=== PATIENT | female | born 1965 | race Caucasian/White ===

== ENCOUNTER → 2017-06-09 18:28 | Outpatient (CLI) | payer OTHER, SELFPAY | PROVIDERS: Family Provider Family Medicine; Visit Provider Physician Assistant | DX: S81.812A Laceration without foreign body, left lower leg, initial encounter (principal); X58.XXXA Exposure to other specified factors, initial encounter | CPT/HCPCS: 87070; 87075; 87077; 87205 ==

== ENCOUNTER 2017-07-14 15:00 | Outpatient (RCR) | payer OTHER, SELFPAY ==
[2017-06-16 13:33] VITALS: BP 122/75; PULSE 100; RESP 16; TEMP 36.9; BMI 27.2
--- NOTE | 2017-06-16 15:24 | WC ---
Addendum entered by George Jessica 06/16/17 15:41: Multiphasic pulses throughout study. Lower legs and feet warm to touch. No edema, erythema present Original Note: KD SCREEN RIGHT BRACHIAL 121 mmHg LEFT BRACHIAL 100 mmHg POST. TIB. 130 mmHg POST. TIB. 130 mmHg DORS. PED. 118 mmHg DORS. PED. 118 mmHg 130 = 1.07 130 = 1.07 121 121 KD: 1.07 KD: 1.07
[2017-06-16 18:11] LABS: Absolute Lymphocyte Count 3.88 X10^3/ul (0.83-4.51); Absolute Neutrophil Count 5.1 X10^3/uL (2.0-7.7); Basophil# 0.06 X10^3/uL; Basophil% 0.6 % (0-1); Eosinophil# 0.17 X10^3/uL; Eosinophils% 1.7 % (0-5); Hematocrit 42.8 % (37-47); Hemoglobin 14.1 g/dl (12.0-15.0); Lymphocyte # 3.88 X10^3/ul (4.0); Lymphocyte % 39.2 % (19-41); Mean Corp Hgb Conc 32.9 g/gl (32-36); Mean Corpuscular Hgb 31.7 pg (27.0-32.0); Mean Corpuscular Volume 96.2 fL (81-99); Mean Platelet Vol. 10.5 fl (6.2-12.0); Monocyte# 0.63 X10^3/uL; Monocyte% 6.4 % (0-10); Neutrophil # 5.13 X10^3/uL (2.7-7.7); Neutrophil % 51.9 % (47-70); Platelet Count 348 K/mm3 (150-450); RBC Distribution Width CV 13.1 % (11.6-14.6); RBC Distribution Width SD 45.9 fl (35.1-43.9); Red Blood Count 4.45 M/mm3 (4.2-5.4); White Blood Count 9.9 K/mm3 (4.4-11.0)
[2017-06-16 18:14] LABS: POSITIVE COUNT NO; POSITIVE DIFFERENTIAL NO; POSITIVE MORPHOLOGY NO
[2017-06-16 18:25] LABS: Erythrocyte Sedimentation Rate 7 mm/hr (0-30)
[2017-06-16 18:54] LABS: ALB/GLOB Ratio 1.1 RATIO (0.9-2.4); AST(SGOT) 18 U/L (15-37); Alanine Aminotransfer ALT/SGPT 23 U/L (13-56); Albumin, Serum 3.9 g/dL (3.2-5.0); Alkaline Phosphatase 67 U/L (45-117); Anion Gap 9 (5-15); BUN 15 mg/dL (7-18); BUN/Creat Ratio 22.9 RATIO (10-20); CRP < 2.90 mg/L (0.0-3.0); Calcium,Total 8.8 mg/dL (8.5-10.1); Chloride 102 mmol/L (98-107); Creatinine, Serum 0.65 mg/dL (0.55-1.02); EST Glomerular Filtration Rate 101 mL/min (>60); Est Glom Filt Rate - Afr Amer 122 mL/min (>60); Estimated Creatinine Clearance 99.57 ml/min; Globulin 3.4 g/dL (2.2-4.2); Glucose 66 mg/dL (74-106); Potassium 3.8 mmol/L (3.5-5.1); Protein, Total 7.3 g/dL (6.4-8.2); Sodium Level 137 mmol/L (136-145)
[2017-06-16 19:15] LABS: Hemoglobin A1c 5.6 % (4.2-6.3)
--- NOTE | 2017-06-16 19:37 | PCM.WC.HP ---
(1) Nonhealing ulcer of left lower extremity with fat layer exposed Status: Acute Current Visit: Yes Code(s): L97.922 - Non-pressure chronic ulcer of unspecified part of left lower leg with fat layer exposed (2) Cellulitis of left lower extremity Status: Acute Current Visit: Yes Code(s): L03.116 - Cellulitis of left lower limb (3) Tobacco abuse Status: Acute Current Visit: Yes Code(s): Z72.0 - Tobacco use (4) Edema, lower extremity Status: Acute Current Visit: Yes Code(s): R60.0 - Localized edema (5) Decreased pedal pulses Status: Acute Current Visit: Yes Code(s): R09.89 - Other specified symptoms and signs involving the circulatory and respiratory systems History of Present Illness Date of Service: 06/16/17 Chief Complaint: Wound and infection left lower posterior calf, s/p work injury History of Wound: This is a 51-year-old white female who presents to the wound healing center today for a follow-up of a wound/ulcer on her left posterior calf. This began on 05/10/2017 when she was at work and cut her leg on an unknown object when she was moving a table. She was seen at [place] emergency department and her laceration was sutured. At that time her tetanus was up-to-date. The patient has been following up with corporate care who had referred her to the wound center because of nonhealing status status post suture removal and surrounding cellulitis. The patient was previously treated with Keflex and is now currently on doxycycline. A wound culture was done which demonstrated rare organisms. The patient denies any purulent drainage, foul-smelling discharge, or pain at the site. Her wound care has included keeping the wound covered while at work with gauze. Unfortunately, the patient does smoke as well and has a [id number] smoking history. The patient otherwise denies any fever, chills, nausea, vomiting, shortness of breath, chest pain or pressure, palpitations, orthopnea, lower extremity edema, syncope or presyncopal episodes. Past Medical History Surgical History: noncontributory Allergies/Adverse Reactions: Allergies No Known Allergies Allergy (Verified 06/16/17 13:59) Home Medications: Ambulatory Orders Medication Instructions Recorded Sertraline HCl [Zoloft] 50 mg PO DAILY 05/10/17 doxycycline hyclate 100 mg capsule 100 mg PO BID #20 cap 06/09/17 Ibuprofen 100 mg PO BID 06/16/17 Lives: Spouse/ Significant Other Smoking Status: Current every day smoker Drugs: None Review of Systems Constitutional: Denies: Chills, Fever, Weight Change Eyes: Denies: Pain, Vision Change HEENT: Denies: Difficulty Hearing, Difficulty Swallowing, Sinus Congestion Cardiovascular: Denies: Chest Pain, Palpitations Respiratory: Denies: Cough, Shortness of Breath Gastrointestinal: Denies: Diarrhea, Nausea, Vomiting Genitourinary: Denies: Dysuria, Hematuria Skin: Reports: Wounds - See HPI Endocrine: Denies: Heat/ Cold Intolerance, Polydipsia, Polyuria Hematologic/ Lymphatic: Denies: Easy Bruising, Easy Bleeding - Physical Exam Vital Signs Temp Pulse Resp BP 98.4 F 100 16 122/75 H 06/16/17 13:33 06/16/17 13:33 06/16/17 13:33 06/16/17 13:33 General: Alert, Oriented x3, Cooperative, No apparent distress HEENT: PERRLA, EOMI Oral: Moist Mucosa Neck: Supple, No JVD, Negative Carotid Bruits Lungs: Clear to auscultation, Normal air movement Cardiovascular: Regular rate, Regular Rhythm Abdomen: Bowel Sounds Present, Soft, Non Tender Extremities: No clubbing, No cyanosis, Capillary Refill Less than 3 Seconds, Diminished Peripheral Pulses - 1+ palpable pulses bilaterally, Edema - Generalized bilateral lower extremity edema, - - Varicose veins present bilateral lower extremities Skin: Ulcer/ Wound - Nonhealing V shaped ulcer present left posterior calf, covered in small amount of eschar and large amount of slough, small amount of surrounding erythema approximately 2 cm surrounding the wound bed present, no purulent discharge or odor, no tenderness on exam Wound Measurements and Assessment WC - Nurse 1 - General Ulcer Measurement Start: 06/16/17 13:32 Freq: Status: Active Protocol: Activity Type Activity Date Activity User E-Sign Co-Sign Detail Recorded Client Recorded Date Recorded By Document 06/16/17 13:33 [facility] [id number] 06/16/17 13:49 [facility] 06/16/17 13:33 Wound Center Nurse 1 [Ulcer Assessment] #1- LT CALF (POST TRAUMA ON 05/10/17) -Combined with other wound No -Current Size (cm) - Length 1.8 -Current Size (cm) - Width 2.2 -Current Size (cm) - Depth 0.2 -Total Square Cm 3.96 -Date of Last Picture (Recall this 06/16/17 field) -Photo Taken Yes -Epithelialization None Present -Tunneling No -Undermining/Tunneling No -Exudate Amt None Present (0 %) -Wound Margin Distinct, Outline Attached -Granulation Amt Small (1-33%) -Granulation Quality Red -Slough/Fibrin Yes -Necrosis Amt Medium (34-66%) -Necrotic Tissue Type Adherent Slough -Structure Exposed N/A -Texture (Srea-wound Skin Appearance) Scarring -Moisture (Sera-wound Skin Appearance Dry/Scaly ) -Color (Sera-wound Skin Appearance) Erythema -Temperature (Sera-wound Skin No Abnormality Appearance) (Pt Warm) -Tenderness on Palpation (Sera-wound No Skin Appearance) -Ulcer Cleansing Rinsed/ Irrigated with Saline -Foul Odor after Cleansing No -Anesthetic Used 4% Lidocaine Solution [Edema Assessment] -Lower Limb Edema Present No -Right Calf (cm) 37.9 -Right Ankle (cm) 22.1 -Left Calf (cm) 38.5 -Left Ankle (cm) 22.7 WC - Nurse 2 - General Ulcer CM Notes Start: 06/16/17 13:32 Freq: Status: Active Protocol: Activity Type Activity Date Activity User E-Sign Co-Sign Detail Recorded Client Recorded Date Recorded By Document 06/16/17 14:45 DV [id number] 06/16/17 14:59 DV 06/16/17 14:45 Wound Center Nurse 2 [Procedure/Treatment] #1- LT CALF (POST TRAUMA ON 05/10/17) -Time 14:47 -Correct Patient Yes -Correct Side, Site, Position Yes -Correct Procedure Yes -Procedure Performed Yes -Type of Procedure Debridement -Clinical Debridement Subcutaneous -Post Debridement Size (cm) - Length 1.6 -Post Debridement Size (cm) - Width 2.2 -Post Debridement Size (cm) - Depth 0.4 -Total Square Cm 3.52 -Wound/Ulcer Outcome Not Healed -Ulcer Cleansing Rinsed/ Irrigated with Saline -Foul Odor after Cleansing No -Bioengineered Tissue No -Bleeding Controlled with Pressure -Treatment Response Procedure Tolerated Well [See Physician Procedure note for Specifics] Pain Scale: 0-10 Numeric [Pain] -Is Patient Pain Free? Yes Musculoskeletal: No Tenderness to Palpation of Joints or Extremities Neurological: Cranial nerves II-XII grossly intact Psych/Mental Status: Normal Affect, Appropriate, Alert and oriented to time, place, person, mood and affect Debridement Note Post-Debridement Measurements/Treatment WC - Nurse 2 - General Ulcer CM Notes Start: 06/16/17 13:32 Freq: Status: Active Protocol: Activity Type Activity Date Activity User E-Sign Co-Sign Detail Recorded Client Recorded Date Recorded By Document 06/16/17 14:45 DV [id number] 06/16/17 14:59 DV 06/16/17 14:45 Wound Center Nurse 2 #1- LT CALF (POST TRAUMA ON 05/10/17) -Time 14:47 -Correct Patient Yes -Correct Side, Site, Position Yes -Correct Procedure Yes -Procedure Performed Yes -Type of Procedure Debridement -Clinical Debridement Subcutaneous -Post Debridement Size (cm) - Length 1.6 -Post Debridement Size (cm) - Width 2.2 -Post Debridement Size (cm) - Depth 0.4 -Total Square Cm 3.52 -Wound/Ulcer Outcome Not Healed -Ulcer Cleansing Rinsed/ Irrigated with Saline -Foul Odor after Cleansing No -Bioengineered Tissue No -Bleeding Controlled with Pressure -Treatment Response Procedure Tolerated Well Pain Scale: 0-10 Numeric Is Patient Pain Free? Yes Wound debrided: Nonhealing ulcer status post traumatic injury left posterior calf Laterality: Left Type of Debridement: Excisional debridement Anesthesia Used: 5% Lidocaine Gel Depth: Down to and including healthy tissue, in the subcutaneous layer Percentage of wound debrided: 100 Instrument Used: 5mm curette Tissue Removed: Slough and devitalized tissue Severity: Fat Layer Exposed Amount of bleeding with debridement: Mild Bleeding Controlled with: Pressure Patient tolerated procedure well Assessment/Plan Active Problems (Last Reviewed 06/09/17 @ 16:00 by Ashtyn Glaser) Nonhealing ulcer of left lower extremity with fat layer exposed (Acute) Tobacco abuse (Acute) Edema, lower extremity (Acute) Decreased pedal pulses (Acute) Cellulitis of left lower extremity (Acute) Assessment: Nonhealing ulcer left posterior calf status post traumatic injury which occurred at work Plan: The patient was seen and examined at the wound center today and was updated on the plan of care. A subcutaneous debridement was performed today. The patient tolerated the procedure well. The patients wound care will consist of: Daily Tessa, hydrogel, and Adaptic and gauze with double Tubigrip for compression. Wound cultures were collected. Patient to continue with her entire course of doxycycline, her cellulitis does appear to be improving. Baseline bloodwork ordered. Vascular studies ordered. ABIs were done today in the office which demonstrated 1.07 bilaterally, therefore double Tubigrip compression ordered. Patient educated on the detrimental effects of her smoking on wound healing and instructed to cut back and/or entirely quit smoking, deferred smoking cessation pharmacologic management to her PCP. Patient educated on the importance of diet on wound healing and instructed to increase protein and vitamin C intake. Patient verbalized understanding. Patient will follow up at wound healing center in one week or sooner if needed. This note was generated with [employer] dictation software. It may contain incorrect words, spelling, and punctuation that were not noted in checking the note before signing. Code Visit Office Visits / Consults: 50498 OV L4 Est 111xxx-113xx: [id number] Lissette subq tissue 20 sq cm/<
--- NOTE | 2017-06-17 08:47 | HP.PCM_ITS ---
(1) Nonhealing ulcer of left lower extremity with fat layer exposed Status: Acute Current Visit: Yes Code(s): L97.922 - Non-pressure chronic ulcer of unspecified part of left lower leg with fat layer exposed (2) Cellulitis of left lower extremity Status: Acute Current Visit: Yes Code(s): L03.116 - Cellulitis of left lower limb (3) Tobacco abuse Status: Acute Current Visit: Yes Code(s): Z72.0 - Tobacco use (4) Edema, lower extremity Status: Acute Current Visit: Yes Code(s): R60.0 - Localized edema (5) Decreased pedal pulses Status: Acute Current Visit: Yes Code(s): R09.89 - Other specified symptoms and signs involving the circulatory and respiratory systems History of Present Illness Date of Service: 06/16/17 Chief Complaint: Wound and infection left lower posterior calf, s/p work injury History of Wound: This is a 51-year-old white female who presents to the wound healing center today for a follow-up of a wound/ulcer on her left posterior calf. This began on 05/10/2017 when she was at work and cut her leg on an unknown object when she was moving a table. She was seen at [place] emergency department and her laceration was sutured. At that time her tetanus was up-to-date. The patient has been following up with corporate care who had referred her to the wound center because of nonhealing status status post suture removal and surrounding cellulitis. The patient was previously treated with Keflex and is now currently on doxycycline. A wound culture was done which demonstrated rare organisms. The patient denies any purulent drainage, foul-smelling discharge, or pain at the site. Her wound care has included keeping the wound covered while at work with gauze. Unfortunately, the patient does smoke as well and has a [id number] smoking history. The patient otherwise denies any fever, chills, nausea, vomiting, shortness of breath, chest pain or pressure, palpitations, orthopnea, lower extremity edema, syncope or presyncopal episodes. Past Medical History Surgical History: noncontributory Allergies/Adverse Reactions: Allergies No Known Allergies Allergy (Verified 06/16/17 13:59) Home Medications: Ambulatory Orders Medication Instructions Recorded Sertraline HCl [Zoloft] 50 mg PO DAILY 05/10/17 doxycycline hyclate 100 mg capsule 100 mg PO BID #20 cap 06/09/17 Ibuprofen 100 mg PO BID 06/16/17 Lives: Spouse/ Significant Other Smoking Status: Current every day smoker Drugs: None Review of Systems Constitutional: Denies: Chills, Fever, Weight Change Eyes: Denies: Pain, Vision Change HEENT: Denies: Difficulty Hearing, Difficulty Swallowing, Sinus Congestion Cardiovascular: Denies: Chest Pain, Palpitations Respiratory: Denies: Cough, Shortness of Breath Gastrointestinal: Denies: Diarrhea, Nausea, Vomiting Genitourinary: Denies: Dysuria, Hematuria Skin: Reports: Wounds - See HPI Endocrine: Denies: Heat/ Cold Intolerance, Polydipsia, Polyuria Hematologic/ Lymphatic: Denies: Easy Bruising, Easy Bleeding - Physical Exam Vital Signs Temp Pulse Resp BP 98.4 F 100 16 122/75 H 06/16/17 13:33 06/16/17 13:33 06/16/17 13:33 06/16/17 13:33 General: Alert, Oriented x3, Cooperative, No apparent distress HEENT: PERRLA, EOMI Oral: Moist Mucosa Neck: Supple, No JVD, Negative Carotid Bruits Lungs: Clear to auscultation, Normal air movement Cardiovascular: Regular rate, Regular Rhythm Abdomen: Bowel Sounds Present, Soft, Non Tender Extremities: No clubbing, No cyanosis, Capillary Refill Less than 3 Seconds, Diminished Peripheral Pulses - 1+ palpable pulses bilaterally, Edema - Generalized bilateral lower extremity edema, - - Varicose veins present bilateral lower extremities Skin: Ulcer/ Wound - Nonhealing V shaped ulcer present left posterior calf, covered in small amount of eschar and large amount of slough, small amount of surrounding erythema approximately 2 cm surrounding the wound bed present, no purulent discharge or odor, no tenderness on exam Wound Measurements and Assessment WC - Nurse 1 - General Ulcer Measurement Start: 06/16/17 13:32 Freq: Status: Active Protocol: Activity Type Activity Date Activity User E-Sign Co-Sign Detail Recorded Client Recorded Date Recorded By Document 06/16/17 13:33 [facility] [id number] 06/16/17 13:49 [facility] 06/16/17 13:33 Wound Center Nurse 1 [Ulcer Assessment] #1- LT CALF (POST TRAUMA ON 05/10/17) -Combined with other wound No -Current Size (cm) - Length 1.8 -Current Size (cm) - Width 2.2 -Current Size (cm) - Depth 0.2 -Total Square Cm 3.96 -Date of Last Picture (Recall this 06/16/17 field) -Photo Taken Yes -Epithelialization None Present -Tunneling No -Undermining/Tunneling No -Exudate Amt None Present (0 %) -Wound Margin Distinct, Outline Attached -Granulation Amt Small (1-33%) -Granulation Quality Red -Slough/Fibrin Yes -Necrosis Amt Medium (34-66%) -Necrotic Tissue Type Adherent Slough -Structure Exposed N/A -Texture (Sera-wound Skin Appearance) Scarring -Moisture (Sera-wound Skin Appearance Dry/Scaly ) -Color (Sera-wound Skin Appearance) Erythema -Temperature (Sera-wound Skin No Abnormality Appearance) (Pt Warm) -Tenderness on Palpation (Sera-wound No Skin Appearance) -Ulcer Cleansing Rinsed/ Irrigated with Saline -Foul Odor after Cleansing No -Anesthetic Used 4% Lidocaine Solution [Edema Assessment] -Lower Limb Edema Present No -Right Calf (cm) 37.9 -Right Ankle (cm) 22.1 -Left Calf (cm) 38.5 -Left Ankle (cm) 22.7 WC - Nurse 2 - General Ulcer CM Notes Start: 06/16/17 13:32 Freq: Status: Active Protocol: Activity Type Activity Date Activity User E-Sign Co-Sign Detail Recorded Client Recorded Date Recorded By Document 06/16/17 14:45 DV [id number] 06/16/17 14:59 DV 06/16/17 14:45 Wound Center Nurse 2 [Procedure/Treatment] #1- LT CALF (POST TRAUMA ON 05/10/17) -Time 14:47 -Correct Patient Yes -Correct Side, Site, Position Yes -Correct Procedure Yes -Procedure Performed Yes -Type of Procedure Debridement -Clinical Debridement Subcutaneous -Post Debridement Size (cm) - Length 1.6 -Post Debridement Size (cm) - Width 2.2 -Post Debridement Size (cm) - Depth 0.4 -Total Square Cm 3.52 -Wound/Ulcer Outcome Not Healed -Ulcer Cleansing Rinsed/ Irrigated with Saline -Foul Odor after Cleansing No -Bioengineered Tissue No -Bleeding Controlled with Pressure -Treatment Response Procedure Tolerated Well [See Physician Procedure note for Specifics] Pain Scale: 0-10 Numeric [Pain] -Is Patient Pain Free? Yes Musculoskeletal: No Tenderness to Palpation of Joints or Extremities Neurological: Cranial nerves II-XII grossly intact Psych/Mental Status: Normal Affect, Appropriate, Alert and oriented to time, place, person, mood and affect Debridement Note Post-Debridement Measurements/Treatment WC - Nurse 2 - General Ulcer CM Notes Start: 06/16/17 13:32 Freq: Status: Active Protocol: Activity Type Activity Date Activity User E-Sign Co-Sign Detail Recorded Client Recorded Date Recorded By Document 06/16/17 14:45 DV [id number] 06/16/17 14:59 DV 06/16/17 14:45 Wound Center Nurse 2 #1- LT CALF (POST TRAUMA ON 05/10/17) -Time 14:47 -Correct Patient Yes -Correct Side, Site, Position Yes -Correct Procedure Yes -Procedure Performed Yes -Type of Procedure Debridement -Clinical Debridement Subcutaneous -Post Debridement Size (cm) - Length 1.6 -Post Debridement Size (cm) - Width 2.2 -Post Debridement Size (cm) - Depth 0.4 -Total Square Cm 3.52 -Wound/Ulcer Outcome Not Healed -Ulcer Cleansing Rinsed/ Irrigated with Saline -Foul Odor after Cleansing No -Bioengineered Tissue No -Bleeding Controlled with Pressure -Treatment Response Procedure Tolerated Well Pain Scale: 0-10 Numeric Is Patient Pain Free? Yes Wound debrided: Nonhealing ulcer status post traumatic injury left posterior calf Laterality: Left Type of Debridement: Excisional debridement Anesthesia Used: 5% Lidocaine Gel Depth: Down to and including healthy tissue, in the subcutaneous layer Percentage of wound debrided: 100 Instrument Used: 5mm curette Tissue Removed: Slough and devitalized tissue Severity: Fat Layer Exposed Amount of bleeding with debridement: Mild Bleeding Controlled with: Pressure Patient tolerated procedure well Assessment/Plan Active Problems (Last Reviewed 06/09/17 @ 16:00 by Ashtyn Glaser) Nonhealing ulcer of left lower extremity with fat layer exposed (Acute) Tobacco abuse (Acute) Edema, lower extremity (Acute) Decreased pedal pulses (Acute) Cellulitis of left lower extremity (Acute) Assessment: Nonhealing ulcer left posterior calf status post traumatic injury which occurred at work Plan: The patient was seen and examined at the wound center today and was updated on the plan of care. A subcutaneous debridement was performed today. The patient tolerated the procedure well. The patients wound care will consist of: Daily Tessa, hydrogel, and Adaptic and gauze with double Tubigrip for compression. Wound cultures were collected. Patient to continue with her entire course of doxycycline, her cellulitis does appear to be improving. Baseline bloodwork ordered. Vascular studies ordered. ABIs were done today in the office which demonstrated 1.07 bilaterally, therefore double Tubigrip compression ordered. Patient educated on the detrimental effects of her smoking on wound healing and instructed to cut back and/or entirely quit smoking , deferred smoking cessation pharmacologic management to her PCP. Patient educated on the importance of diet on wound healing and instructed to increase protein and vitamin C intake. Patient verbalized understanding. Patient will follow up at wound healing center in one week or sooner if needed. This note was generated with [employer] dictation software. It may contain incorrect words, spelling, and punctuation that were not noted in checking the note before signing. Code Visit Office Visits / Consults: [id number] OV L4 Est 111xxx-113xx: [id number] Lissette subq tissue 20 sq cm/<
[2017-06-23 14:46] VITALS: BP 118/69; PULSE 101; RESP 18; TEMP 36
--- NOTE | 2017-06-23 16:48 | PCM.WC.PN ---
(1) Nonhealing ulcer of left lower extremity with fat layer exposed Status: Acute Current Visit: Yes Code(s): L97.922 - Non-pressure chronic ulcer of unspecified part of left lower leg with fat layer exposed (2) Cellulitis of left lower extremity Status: Acute Current Visit: Yes Code(s): L03.116 - Cellulitis of left lower limb (3) Tobacco abuse Status: Acute Current Visit: Yes Code(s): Z72.0 - Tobacco use (4) Edema, lower extremity Status: Acute Current Visit: Yes Code(s): R60.0 - Localized edema (5) Decreased pedal pulses Status: Acute Current Visit: Yes Code(s): R09.89 - Other specified symptoms and signs involving the circulatory and respiratory systems Type of Wound Date of Service: 06/23/17 Chief Complaint: Wound and infection left lower posterior calf, s/p work injury History of Wound: This is a 51-year-old white female who presents to the wound healing center today for a follow-up of a wound/ulcer on her left posterior calf. This began on 05/10/2017 when she was at work and cut her leg on an unknown object when she was moving a table. She was seen at [place] emergency department and her laceration was sutured. At that time her tetanus was up-to-date. The patient has been following up with corporate care who had referred her to the wound center because of nonhealing status status post suture removal and surrounding cellulitis. The patient was previously treated with Keflex and is now currently on doxycycline. A wound culture was done which demonstrated rare organisms. The patient denies any purulent drainage, foul-smelling discharge, or pain at the site. Her wound care has included keeping the wound covered while at work with gauze. Unfortunately, the patient does smoke as well and has a [id number] smoking history. The patient otherwise denies any fever, chills, nausea, vomiting, shortness of breath, chest pain or pressure, palpitations, orthopnea, lower extremity edema, syncope or presyncopal episodes. Progress of Wound: Wound is stable and improving - Physical Exam Vital Signs Temp Pulse Resp BP 96.8 F L 101 H 18 118/69 06/23/17 14:46 06/23/17 14:46 06/23/17 14:46 06/23/17 14:46 General: Alert, Oriented x3, Cooperative, No apparent distress HEENT: Atraumatic Oral: Moist Mucosa Cardiovascular: Regular rate Extremities: Diminished Peripheral Pulses, Edema - Generalized lower extremity edema Skin: Ulcer/ Wound - Nonhealing ulcer present left posterior calf, periwound bed no longer inflamed and no exudate or foul smell. No pain or tenderness Wound Measurements and Assessment WC - Nurse 1 - General Ulcer Measurement Start: 06/16/17 13:32 Freq: Status: Active Protocol: Activity Type Activity Date Activity User E-Sign Co-Sign Detail Recorded Client Recorded Date Recorded By Document 06/23/17 14:46 DL [id number] 06/23/17 14:58 DL 06/23/17 14:46 Wound Center Nurse 1 [Ulcer Assessment] #1- LT CALF (POST TRAUMA ON 05/10/17) -Current Size (cm) - Length 1.6 -Current Size (cm) - Width 2 -Current Size (cm) - Depth 0.2 -Total Square Cm 3.2 -Photo Taken No -Exudate Amt Small (1-33%) -Exudate Type Serosanguineous -Wound Margin Distinct, Outline Attached -Granulation Amt Medium (34-66%) -Granulation Quality [place] -Necrosis Amt Medium (34-66%) -Necrotic Tissue Type Adherent Slough -Structure Exposed N/A -Texture (Sera-wound Skin Appearance) Scarring -Moisture (Sera-wound Skin Appearance No Abnormality ) -Color (Sear-wound Skin Appearance) Erythema Rubor -Temperature (Sera-wound Skin No Abnormality Appearance) (Pt Warm) -Ulcer Cleansing Wound Cleanser -Foul Odor after Cleansing No -Anesthetic Used 4% Lidocaine Solution [Edema Assessment] -Left Calf (cm) 36.5 -Left Ankle (cm) 21.8 WC - Nurse 2 - General Ulcer CM Notes Start: 06/16/17 13:32 Freq: Status: Active Protocol: Activity Type Activity Date Activity User E-Sign Co-Sign Detail Recorded Client Recorded Date Recorded By Document 06/23/17 16:12 DV [id number] 06/23/17 16:14 DV 06/23/17 16:12 Wound Center Nurse 2 [Procedure/Treatment] #1- LT CALF (POST TRAUMA ON 05/10/17) -Time 16:12 -Correct Patient Yes -Correct Side, Site, Position Yes -Correct Procedure Yes -Procedure Performed Yes -Type of Procedure Debridement -Clinical Debridement Subcutaneous -Post Debridement Size (cm) - Length 1.3 -Post Debridement Size (cm) - Width 1.8 -Post Debridement Size (cm) - Depth 0.3 -Total Square Cm 2.34 -Wound/Ulcer Outcome Not Healed -Ulcer Cleansing Rinsed/ Irrigated with Saline -Foul Odor after Cleansing No -Bioengineered Tissue No -Bleeding Controlled with Pressure -Treatment Response Procedure Tolerated Well [See Physician Procedure note for Specifics] Pain Scale: 0-10 Numeric [Pain] -Is Patient Pain Free? Yes Neurological: Cranial nerves II-XII grossly intact Psych/Mental Status: Normal Affect, Alert and oriented to time, place, person, mood and affect Debridement Note Post-Debridement Measurements/Treatment WC - Nurse 2 - General Ulcer CM Notes Start: 06/16/17 13:32 Freq: Status: Active Protocol: Activity Type Activity Date Activity User E-Sign Co-Sign Detail Recorded Client Recorded Date Recorded By Document 06/16/17 14:45 DV [id number] 06/16/17 14:59 DV Document 06/23/17 16:12 DV [id number] 06/23/17 16:14 DV 06/16/17 06/23/17 14:45 16:12 Wound Center Nurse 2 #1- LT CALF (POST TRAUMA ON 05/10/17) -Time 14:47 16:12 -Correct Patient Yes Yes -Correct Side, Site, Position Yes Yes -Correct Procedure Yes Yes -Procedure Performed Yes Yes -Type of Procedure Debridement Debridement -Clinical Debridement Subcutaneous Subcutaneous -Post Debridement Size (cm) - Length 1.6 1.3 -Post Debridement Size (cm) - Width 2.2 1.8 -Post Debridement Size (cm) - Depth 0.4 0.3 -Total Square Cm 3.52 2.34 -Wound/Ulcer Outcome Not Healed Not Healed -Ulcer Cleansing Rinsed/ Rinsed/ Irrigated with Irrigated with Saline Saline -Foul Odor after Cleansing No No -Bioengineered Tissue No No -Bleeding Controlled with Pressure Pressure -Treatment Response Procedure Procedure Tolerated Well Tolerated Well Pain Scale: 0-10 Numeric Is Patient Pain Free? Yes Yes Wound debrided: Nonhealing ulcer left lower extremity posterior calf Laterality: Left Type of Debridement: Excisional debridement Anesthesia Used: 5% Lidocaine Gel Depth: in the subcutaneous layer Percentage of wound debrided: 100 Instrument Used: 5mm curette Tissue Removed: Slough and fibrous tissue and excess necrotic tissue Severity: Fat Layer Exposed Bleeding Controlled with: Pressure Patient tolerated procedure well Assessment/Plan Active Problems (Last Reviewed 06/09/17 @ 16:00 by Ashtyn Glaser) Nonhealing ulcer of left lower extremity with fat layer exposed (Acute) Tobacco abuse (Acute) Edema, lower extremity (Acute) Decreased pedal pulses (Acute) Cellulitis of left lower extremity (Acute) Assessment: Nonhealing ulcer left posterior calf status post traumatic injury which occurred at work gradually improving Plan: The patient was seen and examined at the wound center today and was updated on the plan of care. A subcutaneous debridement was performed today. The patient tolerated the procedure well. The patients wound care will consist of: Daily Tessa, hydrogel, and Adaptic and gauze with LUL hose compression stockings for compression. Wound cultures were collected. Patient did complete her entire course of doxycycline, her cellulitis does appear to be resolved. Baseline bloodwork reviewed with patient. Vascular studies reviewed and showed valvular incompetencies, therefore patient instructed to utilize her LUL hose compression stockings that she has at home. ABIs were done previously in the office which demonstrated 1.07 bilaterally. Patient educated on the detrimental effects of her smoking on wound healing and instructed to cut back and/or entirely quit smoking, deferred smoking cessation pharmacologic management to her PCP. Patient educated on the importance of diet on wound healing and instructed to increase protein and vitamin C intake. Patient verbalized understanding. Patient will follow up at wound healing center in one week or sooner if needed. This note was generated with [employer] dictation software. It may contain incorrect words, spelling, and punctuation that were not noted in checking the note before signing. Code Visit 111xxx-113xx: 77042 Lissette subq tissue 20 sq cm/<
--- NOTE | 2017-06-24 16:54 | PN.PCM_ITS ---
(1) Nonhealing ulcer of left lower extremity with fat layer exposed Status: Acute Current Visit: Yes Code(s): L97.922 - Non-pressure chronic ulcer of unspecified part of left lower leg with fat layer exposed (2) Cellulitis of left lower extremity Status: Acute Current Visit: Yes Code(s): L03.116 - Cellulitis of left lower limb (3) Tobacco abuse Status: Acute Current Visit: Yes Code(s): Z72.0 - Tobacco use (4) Edema, lower extremity Status: Acute Current Visit: Yes Code(s): R60.0 - Localized edema (5) Decreased pedal pulses Status: Acute Current Visit: Yes Code(s): R09.89 - Other specified symptoms and signs involving the circulatory and respiratory systems Type of Wound Date of Service: 06/23/17 Chief Complaint: Wound and infection left lower posterior calf, s/p work injury History of Wound: This is a 51-year-old white female who presents to the wound healing center today for a follow-up of a wound/ulcer on her left posterior calf. This began on 05/10/2017 when she was at work and cut her leg on an unknown object when she was moving a table. She was seen at [place] emergency department and her laceration was sutured. At that time her tetanus was up-to-date. The patient has been following up with corporate care who had referred her to the wound center because of nonhealing status status post suture removal and surrounding cellulitis. The patient was previously treated with Keflex and is now currently on doxycycline. A wound culture was done which demonstrated rare organisms. The patient denies any purulent drainage, foul-smelling discharge, or pain at the site. Her wound care has included keeping the wound covered while at work with gauze. Unfortunately, the patient does smoke as well and has a [id number] smoking history. The patient otherwise denies any fever, chills, nausea, vomiting, shortness of breath, chest pain or pressure, palpitations, orthopnea, lower extremity edema, syncope or presyncopal episodes. Progress of Wound: Wound is stable and improving - Physical Exam Vital Signs Temp Pulse Resp BP 96.8 F L 101 H 18 118/69 06/23/17 14:46 06/23/17 14:46 06/23/17 14:46 06/23/17 14:46 General: Alert, Oriented x3, Cooperative, No apparent distress HEENT: Atraumatic Oral: Moist Mucosa Cardiovascular: Regular rate Extremities: Diminished Peripheral Pulses, Edema - Generalized lower extremity edema Skin: Ulcer/ Wound - Nonhealing ulcer present left posterior calf, periwound bed no longer inflamed and no exudate or foul smell. No pain or tenderness Wound Measurements and Assessment WC - Nurse 1 - General Ulcer Measurement Start: 06/16/17 13:32 Freq: Status: Active Protocol: Activity Type Activity Date Activity User E-Sign Co-Sign Detail Recorded Client Recorded Date Recorded By Document 06/23/17 14:46 DL [id number] 06/23/17 14:58 DL 06/23/17 14:46 Wound Center Nurse 1 [Ulcer Assessment] #1- LT CALF (POST TRAUMA ON 05/10/17) -Current Size (cm) - Length 1.6 -Current Size (cm) - Width 2 -Current Size (cm) - Depth 0.2 -Total Square Cm 3.2 -Photo Taken No -Exudate Amt Small (1-33%) -Exudate Type Serosanguineous -Wound Margin Distinct, Outline Attached -Granulation Amt Medium (34-66%) -Granulation Quality [place] -Necrosis Amt Medium (34-66%) -Necrotic Tissue Type Adherent Slough -Structure Exposed N/A -Texture (Sera-wound Skin Appearance) Scarring -Moisture (Sera-wound Skin Appearance No Abnormality ) -Color (Sera-wound Skin Appearance) Erythema Rubor -Temperature (Sera-wound Skin No Abnormality Appearance) (Pt Warm) -Ulcer Cleansing Wound Cleanser -Foul Odor after Cleansing No -Anesthetic Used 4% Lidocaine Solution [Edema Assessment] -Left Calf (cm) 36.5 -Left Ankle (cm) 21.8 WC - Nurse 2 - General Ulcer CM Notes Start: 06/16/17 13:32 Freq: Status: Active Protocol: Activity Type Activity Date Activity User E-Sign Co-Sign Detail Recorded Client Recorded Date Recorded By Document 06/23/17 16:12 DV [id number] 06/23/17 16:14 DV 06/23/17 16:12 Wound Center Nurse 2 [Procedure/Treatment] #1- LT CALF (POST TRAUMA ON 05/10/17) -Time 16:12 -Correct Patient Yes -Correct Side, Site, Position Yes -Correct Procedure Yes -Procedure Performed Yes -Type of Procedure Debridement -Clinical Debridement Subcutaneous -Post Debridement Size (cm) - Length 1.3 -Post Debridement Size (cm) - Width 1.8 -Post Debridement Size (cm) - Depth 0.3 -Total Square Cm 2.34 -Wound/Ulcer Outcome Not Healed -Ulcer Cleansing Rinsed/ Irrigated with Saline -Foul Odor after Cleansing No -Bioengineered Tissue No -Bleeding Controlled with Pressure -Treatment Response Procedure Tolerated Well [See Physician Procedure note for Specifics] Pain Scale: 0-10 Numeric [Pain] -Is Patient Pain Free? Yes Neurological: Cranial nerves II-XII grossly intact Psych/Mental Status: Normal Affect, Alert and oriented to time, place, person, mood and affect Debridement Note Post-Debridement Measurements/Treatment WC - Nurse 2 - General Ulcer CM Notes Start: 06/16/17 13:32 Freq: Status: Active Protocol: Activity Type Activity Date Activity User E-Sign Co-Sign Detail Recorded Client Recorded Date Recorded By Document 06/16/17 14:45 DV [id number] 06/16/17 14:59 DV Document 06/23/17 16:12 DV [id number] 06/23/17 16:14 DV 06/16/17 06/23/17 14:45 16:12 Wound Center Nurse 2 #1- LT CALF (POST TRAUMA ON 05/10/17) -Time 14:47 16:12 -Correct Patient Yes Yes -Correct Side, Site, Position Yes Yes -Correct Procedure Yes Yes -Procedure Performed Yes Yes -Type of Procedure Debridement Debridement -Clinical Debridement Subcutaneous Subcutaneous -Post Debridement Size (cm) - Length 1.6 1.3 -Post Debridement Size (cm) - Width 2.2 1.8 -Post Debridement Size (cm) - Depth 0.4 0.3 -Total Square Cm 3.52 2.34 -Wound/Ulcer Outcome Not Healed Not Healed -Ulcer Cleansing Rinsed/ Rinsed/ Irrigated with Irrigated with Saline Saline -Foul Odor after Cleansing No No -Bioengineered Tissue No No -Bleeding Controlled with Pressure Pressure -Treatment Response Procedure Procedure Tolerated Well Tolerated Well Pain Scale: 0-10 Numeric Is Patient Pain Free? Yes Yes Wound debrided: Nonhealing ulcer left lower extremity posterior calf Laterality: Left Type of Debridement: Excisional debridement Anesthesia Used: 5% Lidocaine Gel Depth: in the subcutaneous layer Percentage of wound debrided: 100 Instrument Used: 5mm curette Tissue Removed: Slough and fibrous tissue and excess necrotic tissue Severity: Fat Layer Exposed Bleeding Controlled with: Pressure Patient tolerated procedure well Assessment/Plan Active Problems (Last Reviewed 06/09/17 @ 16:00 by Ashtyn Glaser) Nonhealing ulcer of left lower extremity with fat layer exposed (Acute) Tobacco abuse (Acute) Edema, lower extremity (Acute) Decreased pedal pulses (Acute) Cellulitis of left lower extremity (Acute) Assessment: Nonhealing ulcer left posterior calf status post traumatic injury which occurred at work gradually improving Plan: The patient was seen and examined at the wound center today and was updated on the plan of care. A subcutaneous debridement was performed today. The patient tolerated the procedure well. The patients wound care will consist of: Daily Tessa, hydrogel, and Adaptic and gauze with LUL hose compression stockings for compression. Wound cultures were collected. Patient did complete her entire course of doxycycline, her cellulitis does appear to be resolved. Baseline bloodwork reviewed with patient. Vascular studies reviewed and showed valvular incompetencies, therefore patient instructed to utilize her LUL hose compression stockings that she has at home. ABIs were done previously in the office which demonstrated 1.07 bilaterally. Patient educated on the detrimental effects of her smoking on wound healing and instructed to cut back and/or entirely quit smoking, deferred smoking cessation pharmacologic management to her PCP. Patient educated on the importance of diet on wound healing and instructed to increase protein and vitamin C intake. Patient verbalized understanding. Patient will follow up at wound healing center in one week or sooner if needed. This note was generated with [employer] dictation software. It may contain incorrect words, spelling, and punctuation that were not noted in checking the note before signing. Code Visit 111xxx-113xx: 16437 Lissette subq tissue 20 sq cm/<
[2017-06-30 14:49] VITALS: BP 129/73; PULSE 98; RESP 18; TEMP 36.2; BMI 27.2
--- NOTE | 2017-06-30 18:42 | PCM.WC.PN ---
(1) Nonhealing ulcer of left lower extremity with fat layer exposed Status: Acute Code(s): L97.922 - Non-pressure chronic ulcer of unspecified part of left lower leg with fat layer exposed (2) Cellulitis of left lower extremity Status: Acute Code(s): L03.116 - Cellulitis of left lower limb (3) Tobacco abuse Status: Acute Code(s): Z72.0 - Tobacco use (4) Edema, lower extremity Status: Acute Code(s): R60.0 - Localized edema (5) Decreased pedal pulses Status: Acute Code(s): R09.89 - Other specified symptoms and signs involving the circulatory and respiratory systems Type of Wound Date of Service: 06/30/17 Chief Complaint: Wound and infection left lower posterior calf, s/p work injury History of Wound: This is a 51-year-old white female who presents to the wound healing center today for a follow-up of a wound/ulcer on her left posterior calf. This began on 05/10/2017 when she was at work and cut her leg on an unknown object when she was moving a table. She was seen at [place] emergency department and her laceration was sutured. At that time her tetanus was up-to-date. The patient has been following up with corporate care who had referred her to the wound center because of nonhealing status status post suture removal and surrounding cellulitis. The patient was previously treated with Keflex and is now currently on doxycycline. A wound culture was done which demonstrated rare organisms. The patient denies any purulent drainage, foul-smelling discharge, or pain at the site. Her wound care has included keeping the wound covered while at work with gauze. Unfortunately, the patient does smoke as well and has a [id number] smoking history. The patient otherwise denies any fever, chills, nausea, vomiting, shortness of breath, chest pain or pressure, palpitations, orthopnea, lower extremity edema, syncope or presyncopal episodes. Progress of Wound: Wound is stable and improving - Physical Exam Vital Signs Temp Pulse Resp BP 97.1 F L 98 18 129/73 H 06/30/17 14:49 06/30/17 14:49 06/30/17 14:49 06/30/17 14:49 General: Alert, Oriented x3, Cooperative, No apparent distress HEENT: Atraumatic Cardiovascular: Regular rate Extremities: No edema, Capillary Refill Less than 3 Seconds Skin: Ulcer/ Wound - Wound present left posterior calf, slough and hyperkeratotic edges present, periwound bed is not inflamed Neurological: Neuro grossly intact Psych/Mental Status: Normal Affect, Alert and oriented to time, place, person, mood and affect Debridement Note Post-Debridement Measurements/Treatment WC - Nurse 2 - General Ulcer CM Notes Start: 06/16/17 13:32 Freq: Status: Active Protocol: Activity Type Activity Date Activity User E-Sign Co-Sign Detail Recorded Client Recorded Date Recorded By Document 06/16/17 14:45 DV [id number] 06/16/17 14:59 DV Document 06/23/17 16:12 DV [id number] 06/23/17 16:14 DV Document 06/30/17 15:46 DV [id number] 06/30/17 15:50 DV 06/16/17 06/23/17 06/30/17 14:45 16:12 15:46 Wound Center Nurse 2 #1- LT CALF (POST TRAUMA ON 05/10/17) -Time 14:47 16:12 15:48 -Correct Patient Yes Yes Yes -Correct Side, Site, Position Yes Yes Yes -Correct Procedure Yes Yes Yes -Procedure Performed Yes Yes Yes -Type of Procedure Debridement Debridement Debridement -Clinical Debridement Subcutaneous Subcutaneous Subcutaneous -Post Debridement Size (cm) - Length 1.6 1.3 1.0 -Post Debridement Size (cm) - Width 2.2 1.8 1.2 -Post Debridement Size (cm) - Depth 0.4 0.3 0.3 -Total Square Cm 3.52 2.34 1.20 -Wound/Ulcer Outcome Not Healed Not Healed Not Healed -Ulcer Cleansing Rinsed/ Rinsed/ Rinsed/ Irrigated with Irrigated with Irrigated with Saline Saline Saline -Foul Odor after Cleansing No No No -Bioengineered Tissue No No No -Bleeding Controlled with Pressure Pressure Pressure -Treatment Response Procedure Procedure Procedure Tolerated Well Tolerated Well Tolerated Well Pain Scale: 0-10 Numeric Is Patient Pain Free? Yes Yes Yes Wound debrided: Left posterior calf ulcer Laterality: Left Type of Debridement: Excisional debridement Anesthesia Used: 5% Lidocaine Gel Depth: in the subcutaneous layer Percentage of wound debrided: 100 Instrument Used: 5mm curette Tissue Removed: Slough and hyperkeratotic edges Severity: Fat Layer Exposed Amount of bleeding with debridement: Mild Bleeding Controlled with: Pressure Patient tolerated procedure well Assessment/Plan Assessment: Nonhealing ulcer left posterior calf status post traumatic injury which occurred at work gradually improving Plan: The patient was seen and examined at the wound center today and was updated on the plan of care. A subcutaneous debridement was performed today. The patient tolerated the procedure well. The patients wound care will consist of: Daily Promogran, hydrogel, and Adaptic and gauze with LUL hose compression stockings for compression. Wound cultures were reviewed and demonstrated rare staph epidermidis, no antibiotic treatment indicated. Patient did complete her entire course of doxycycline, her cellulitis does appear to be resolved. Baseline bloodwork reviewed with patient prior and no abnormalities need to be addressed. Vascular studies reviewed and showed valvular incompetencies, therefore patient instructed to utilize her LUL hose compression stockings that she has at home. ABIs were done previously in the office which demonstrated 1.07 bilaterally. Patient educated on the detrimental effects of her smoking on wound healing and instructed to cut back and/or entirely quit smoking, deferred smoking cessation pharmacologic management to her PCP. Patient educated on the importance of diet on wound healing and instructed to increase protein and vitamin C intake. Patient verbalized understanding. Patient will follow up at wound healing center in one week or sooner if needed. This note was generated with [email or web address] dictation software. It may contain incorrect words, spelling, and punctuation that were not noted in checking the note before signing. Code Visit 111xxx-113xx: 33846 Lissette subq tissue 20 sq cm/<
--- NOTE | 2017-07-06 08:47 | PN.PCM_ITS ---
(1) Nonhealing ulcer of left lower extremity with fat layer exposed Status: Acute Code(s): L97.922 - Non-pressure chronic ulcer of unspecified part of left lower leg with fat layer exposed (2) Cellulitis of left lower extremity Status: Acute Code(s): L03.116 - Cellulitis of left lower limb (3) Tobacco abuse Status: Acute Code(s): Z72.0 - Tobacco use (4) Edema, lower extremity Status: Acute Code(s): R60.0 - Localized edema (5) Decreased pedal pulses Status: Acute Code(s): R09.89 - Other specified symptoms and signs involving the circulatory and respiratory systems Type of Wound Date of Service: 06/30/17 Chief Complaint: Wound and infection left lower posterior calf, s/p work injury History of Wound: This is a 51-year-old white female who presents to the wound healing center today for a follow-up of a wound/ulcer on her left posterior calf. This began on 05/10/2017 when she was at work and cut her leg on an unknown object when she was moving a table. She was seen at [place] emergency department and her laceration was sutured. At that time her tetanus was up-to-date. The patient has been following up with corporate care who had referred her to the wound center because of nonhealing status status post suture removal and surrounding cellulitis. The patient was previously treated with Keflex and is now currently on doxycycline. A wound culture was done which demonstrated rare organisms. The patient denies any purulent drainage, foul-smelling discharge, or pain at the site. Her wound care has included keeping the wound covered while at work with gauze. Unfortunately, the patient does smoke as well and has a [id number] smoking history. The patient otherwise denies any fever, chills, nausea, vomiting, shortness of breath, chest pain or pressure, palpitations, orthopnea, lower extremity edema, syncope or presyncopal episodes. Progress of Wound: Wound is stable and improving - Physical Exam Vital Signs Temp Pulse Resp BP 97.1 F L 98 18 129/73 H 06/30/17 14:49 06/30/17 14:49 06/30/17 14:49 06/30/17 14:49 General: Alert, Oriented x3, Cooperative, No apparent distress HEENT: Atraumatic Cardiovascular: Regular rate Extremities: No edema, Capillary Refill Less than 3 Seconds Skin: Ulcer/ Wound - Wound present left posterior calf, slough and hyperkeratotic edges present, periwound bed is not inflamed Neurological: Neuro grossly intact Psych/Mental Status: Normal Affect, Alert and oriented to time, place, person, mood and affect Debridement Note Post-Debridement Measurements/Treatment WC - Nurse 2 - General Ulcer CM Notes Start: 06/16/17 13:32 Freq: Status: Active Protocol: Activity Type Activity Date Activity User E-Sign Co-Sign Detail Recorded Client Recorded Date Recorded By Document 06/16/17 14:45 DV [id number] 06/16/17 14:59 DV Document 06/23/17 16:12 DV [id number] 06/23/17 16:14 DV Document 06/30/17 15:46 DV [id number] 06/30/17 15:50 DV 06/16/17 06/23/17 06/30/17 14:45 16:12 15:46 Wound Center Nurse 2 #1- LT CALF (POST TRAUMA ON 05/10/17) -Time 14:47 16:12 15:48 -Correct Patient Yes Yes Yes -Correct Side, Site, Position Yes Yes Yes -Correct Procedure Yes Yes Yes -Procedure Performed Yes Yes Yes -Type of Procedure Debridement Debridement Debridement -Clinical Debridement Subcutaneous Subcutaneous Subcutaneous -Post Debridement Size (cm) - Length 1.6 1.3 1.0 -Post Debridement Size (cm) - Width 2.2 1.8 1.2 -Post Debridement Size (cm) - Depth 0.4 0.3 0.3 -Total Square Cm 3.52 2.34 1.20 -Wound/Ulcer Outcome Not Healed Not Healed Not Healed -Ulcer Cleansing Rinsed/ Rinsed/ Rinsed/ Irrigated with Irrigated with Irrigated with Saline Saline Saline -Foul Odor after Cleansing No No No -Bioengineered Tissue No No No -Bleeding Controlled with Pressure Pressure Pressure -Treatment Response Procedure Procedure Procedure Tolerated Well Tolerated Well Tolerated Well Pain Scale: 0-10 Numeric Is Patient Pain Free? Yes Yes Yes Wound debrided: Left posterior calf ulcer Laterality: Left Type of Debridement: Excisional debridement Anesthesia Used: 5% Lidocaine Gel Depth: in the subcutaneous layer Percentage of wound debrided: 100 Instrument Used: 5mm curette Tissue Removed: Slough and hyperkeratotic edges Severity: Fat Layer Exposed Amount of bleeding with debridement: Mild Bleeding Controlled with: Pressure Patient tolerated procedure well Assessment/Plan Assessment: Nonhealing ulcer left posterior calf status post traumatic injury which occurred at work gradually improving Plan: The patient was seen and examined at the wound center today and was updated on the plan of care. A subcutaneous debridement was performed today. The patient tolerated the procedure well. The patients wound care will consist of: Daily Promogran, hydrogel, and Adaptic and gauze with LUL hose compression stockings for compression. Wound cultures were reviewed and demonstrated rare staph epidermidis, no antibiotic treatment indicated. Patient did complete her entire course of doxycycline, her cellulitis does appear to be resolved. Baseline bloodwork reviewed with patient prior and no abnormalities need to be addressed. Vascular studies reviewed and showed valvular incompetencies, therefore patient instructed to utilize her LUL hose compression stockings that she has at home. ABIs were done previously in the office which demonstrated 1.07 bilaterally. Patient educated on the detrimental effects of her smoking on wound healing and instructed to cut back and/or entirely quit smoking, deferred smoking cessation pharmacologic management to her PCP. Patient educated on the importance of diet on wound healing and instructed to increase protein and vitamin C intake. Patient verbalized understanding. Patient will follow up at wound healing center in one week or sooner if needed. This note was generated with jiffstore dictation software. It may contain incorrect words, spelling, and punctuation that were not noted in checking the note before signing. Code Visit 111xxx-113xx: [id number] Lissette subq tissue 20 sq cm/<
[2017-07-07 14:56] VITALS: BP 158/89; PULSE 63; RESP 18; TEMP 36.6; BMI 27.2
--- NOTE | 2017-07-07 17:58 | PCM.WC.PN ---
(1) Nonhealing ulcer of left lower extremity with fat layer exposed Status: Acute Current Visit: Yes Code(s): L97.922 - Non-pressure chronic ulcer of unspecified part of left lower leg with fat layer exposed (2) Cellulitis of left lower extremity Status: Acute Current Visit: No Code(s): L03.116 - Cellulitis of left lower limb (3) Tobacco abuse Status: Acute Current Visit: Yes Code(s): Z72.0 - Tobacco use (4) Edema, lower extremity Status: Acute Current Visit: Yes Code(s): R60.0 - Localized edema (5) Decreased pedal pulses Status: Acute Current Visit: Yes Code(s): R09.89 - Other specified symptoms and signs involving the circulatory and respiratory systems Type of Wound Date of Service: 07/07/17 Chief Complaint: Wound and infection left lower posterior calf, s/p work injury History of Wound: This is a 51-year-old white female who presents to the wound healing center today for a follow-up of a wound/ulcer on her left posterior calf. This began on 05/10/2017 when she was at work and cut her leg on an unknown object when she was moving a table. She was seen at [place] emergency department and her laceration was sutured. At that time her tetanus was up-to-date. The patient has been following up with corporate care who had referred her to the wound center because of nonhealing status status post suture removal and surrounding cellulitis. The patient was previously treated with Keflex and is now currently on doxycycline. A wound culture was done which demonstrated rare organisms. The patient denies any purulent drainage, foul-smelling discharge, or pain at the site. Her wound care has included keeping the wound covered while at work with gauze. Unfortunately, the patient does smoke as well and has a [id number] smoking history. The patient otherwise denies any fever, chills, nausea, vomiting, shortness of breath, chest pain or pressure, palpitations, orthopnea, lower extremity edema, syncope or presyncopal episodes. Progress of Wound: Wound is stable and improving - Physical Exam Vital Signs Temp Pulse Resp BP 97.8 F 63 18 158/89 H 07/07/17 14:56 07/07/17 14:56 07/07/17 14:56 07/07/17 14:56 General: Alert, Oriented x3, Cooperative, No apparent distress HEENT: Atraumatic Cardiovascular: Regular rate Extremities: No clubbing, No cyanosis, Capillary Refill Less than 3 Seconds, Diminished Peripheral Pulses, Edema - Generalized bilateral lower extremity edema Skin: Ulcer/ Wound - Ulceration present left posterior lower extremity, slough adhering to periwound bed, no signs of infection such as purulent drainage or increasing pain, wound edges are slightly macerated Wound Measurements and Assessment WC - Nurse 1 - General Ulcer Measurement Start: 06/16/17 13:32 Freq: Status: Active Protocol: Activity Type Activity Date Activity User E-Sign Co-Sign Detail Recorded Client Recorded Date Recorded By Document 07/07/17 14:56 DL [id number] 07/07/17 15:02 DL 07/07/17 14:56 Wound Center Nurse 1 [Ulcer Assessment] #1- LT CALF (POST TRAUMA ON 05/10/17) -Current Size (cm) - Length 0.7 -Current Size (cm) - Width 1.2 -Current Size (cm) - Depth 0.2 -Total Square Cm 0.84 -Photo Taken No -Exudate Amt Small (1-33%) -Exudate Type Serosanguineous -Wound Margin Distinct, Outline Attached -Granulation Amt Medium (34-66%) -Granulation Quality [place] -Necrosis Amt Medium (34-66%) -Necrotic Tissue Type Adherent Slough -Structure Exposed N/A -Texture (Sera-wound Skin Appearance) Scarring -Moisture (Sera-wound Skin Appearance Dry/Scaly ) -Color (Sera-wound Skin Appearance) Rubor -Temperature (Sera-wound Skin No Abnormality Appearance) (Pt Warm) -Ulcer Cleansing Rinsed/ Irrigated with Saline -Foul Odor after Cleansing No -Anesthetic Used 4% Lidocaine Solution [Edema Assessment] -Left Calf (cm) 37.6 -Left Ankle (cm) 21.6 WC - Nurse 2 - General Ulcer CM Notes Start: 06/16/17 13:32 Freq: Status: Active Protocol: Activity Type Activity Date Activity User E-Sign Co-Sign Detail Recorded Client Recorded Date Recorded By Document 07/07/17 16:03 DV [id number] 07/07/17 16:06 DV 07/07/17 16:03 Wound Center Nurse 2 [Procedure/Treatment] #1- LT CALF (POST TRAUMA ON 05/10/17) -Time 16:04 -Correct Patient Yes -Correct Side, Site, Position Yes -Correct Procedure Yes -Procedure Performed Yes -Type of Procedure Debridement -Clinical Debridement Subcutaneous -Post Debridement Size (cm) - Length 0.8 -Post Debridement Size (cm) - Width 1.6 -Post Debridement Size (cm) - Depth 0.3 -Total Square Cm 1.28 -Wound/Ulcer Outcome Not Healed -Ulcer Cleansing Rinsed/ Irrigated with Saline -Foul Odor after Cleansing No -Bioengineered Tissue No -Bleeding Controlled with Pressure -Treatment Response Procedure Tolerated Well [See Physician Procedure note for Specifics] Pain Scale: 0-10 Numeric [Pain] -Is Patient Pain Free? Yes Neurological: Neuro grossly intact Psych/Mental Status: Normal Affect, Alert and oriented to time, place, person, mood and affect Debridement Note Post-Debridement Measurements/Treatment WC - Nurse 2 - General Ulcer CM Notes Start: 06/16/17 13:32 Freq: Status: Active Protocol: Activity Type Activity Date Activity User E-Sign Co-Sign Detail Recorded Client Recorded Date Recorded By Document 06/16/17 14:45 DV [id number] 06/16/17 14:59 DV Document 06/23/17 16:12 DV [id number] 06/23/17 16:14 DV Document 06/30/17 15:46 DV [id number] 06/30/17 15:50 DV Document 07/07/17 16:03 DV [id number] 07/07/17 16:06 DV 06/16/17 06/23/17 06/30/17 14:45 16:12 15:46 Wound Center Nurse 2 #1- LT CALF (POST TRAUMA ON 05/10/17) -Time 14:47 16:12 15:48 -Correct Patient Yes Yes Yes -Correct Side, Site, Position Yes Yes Yes -Correct Procedure Yes Yes Yes -Procedure Performed Yes Yes Yes -Type of Procedure Debridement Debridement Debridement -Clinical Debridement Subcutaneous Subcutaneous Subcutaneous -Post Debridement Size (cm) - Length 1.6 1.3 1.0 -Post Debridement Size (cm) - Width 2.2 1.8 1.2 -Post Debridement Size (cm) - Depth 0.4 0.3 0.3 -Total Square Cm 3.52 2.34 1.20 -Wound/Ulcer Outcome Not Healed Not Healed Not Healed -Ulcer Cleansing Rinsed/ Rinsed/ Rinsed/ Irrigated with Irrigated with Irrigated with Saline Saline Saline -Foul Odor after Cleansing No No No -Bioengineered Tissue No No No -Bleeding Controlled with Pressure Pressure Pressure -Treatment Response Procedure Procedure Procedure Tolerated Well Tolerated Well Tolerated Well Pain Scale: 0-10 Numeric Is Patient Pain Free? Yes Yes Yes 07/07/17 16:03 Wound Center Nurse 2 #1- LT CALF (POST TRAUMA ON 05/10/17) -Time 16:04 -Correct Patient Yes -Correct Side, Site, Position Yes -Correct Procedure Yes -Procedure Performed Yes -Type of Procedure Debridement -Clinical Debridement Subcutaneous -Post Debridement Size (cm) - Length 0.8 -Post Debridement Size (cm) - Width 1.6 -Post Debridement Size (cm) - Depth 0.3 -Total Square Cm 1.28 -Wound/Ulcer Outcome Not Healed -Ulcer Cleansing Rinsed/ Irrigated with Saline -Foul Odor after Cleansing No -Bioengineered Tissue No -Bleeding Controlled with Pressure -Treatment Response Procedure Tolerated Well Pain Scale: 0-10 Numeric Is Patient Pain Free? Yes Wound debrided: Left lower extremity ulceration Laterality: Left Type of Debridement: Excisional debridement Anesthesia Used: 4% Lidocaine Solution Depth: in the subcutaneous layer Percentage of wound debrided: 100 Instrument Used: 3mm curette, 5mm curette Tissue Removed: Slough and fibrous tissue Severity: Fat Layer Exposed Amount of bleeding with debridement: Mild Patient tolerated procedure well Assessment/Plan Active Problems (Last Reviewed 06/09/17 @ 16:00 by Ashtyn Glaser) Nonhealing ulcer of left lower extremity with fat layer exposed (Acute) Tobacco abuse (Acute) Edema, lower extremity (Acute) Decreased pedal pulses (Acute) Assessment: Nonhealing ulcer left posterior calf status post traumatic injury which occurred at work gradually improving Plan: The patient was seen and examined at the wound center today and was updated on the plan of care. A subcutaneous debridement was performed today. The patient tolerated the procedure well. The patients wound care will consist of: Daily moistened Promogran,and Adaptic and gauze with LUL hose compression stockings for compression. Wound cultures were reviewed and demonstrated rare staph epidermidis, no antibiotic treatment indicated. Patient did complete her entire course of doxycycline, her cellulitis does appear to be resolved. Baseline bloodwork reviewed with patient prior and no abnormalities need to be addressed. Vascular studies reviewed and showed valvular incompetencies, therefore patient instructed to utilize her LUL hose compression stockings that she has at home and a vascular referral was placed. ABIs were done previously in the office which demonstrated 1.07 bilaterally. Patient educated on the detrimental effects of her smoking on wound healing and instructed to cut back and/or entirely quit smoking, deferred smoking cessation pharmacologic management to her PCP. Patient educated on the importance of diet on wound healing and instructed to increase protein and vitamin C intake. Patient verbalized understanding. Patient will follow up at wound healing center in one week or sooner if needed. This note was generated with [employer] dictation software. It may contain incorrect words, spelling, and punctuation that were not noted in checking the note before signing. Code Visit 111xxx-113xx: [id number] Lissette subq tissue 20 sq cm/<
--- NOTE | 2017-07-10 11:03 | PN.PCM_ITS ---
(1) Nonhealing ulcer of left lower extremity with fat layer exposed Status: Acute Current Visit: Yes Code(s): L97.922 - Non-pressure chronic ulcer of unspecified part of left lower leg with fat layer exposed (2) Cellulitis of left lower extremity Status: Acute Current Visit: No Code(s): L03.116 - Cellulitis of left lower limb (3) Tobacco abuse Status: Acute Current Visit: Yes Code(s): Z72.0 - Tobacco use (4) Edema, lower extremity Status: Acute Current Visit: Yes Code(s): R60.0 - Localized edema (5) Decreased pedal pulses Status: Acute Current Visit: Yes Code(s): R09.89 - Other specified symptoms and signs involving the circulatory and respiratory systems Type of Wound Date of Service: 07/07/17 Chief Complaint: Wound and infection left lower posterior calf, s/p work injury History of Wound: This is a 51-year-old white female who presents to the wound healing center today for a follow-up of a wound/ulcer on her left posterior calf. This began on 05/10/2017 when she was at work and cut her leg on an unknown object when she was moving a table. She was seen at [facility] emergency department and her laceration was sutured. At that time her tetanus was up-to-date. The patient has been following up with corporate care who had referred her to the wound center because of nonhealing status status post suture removal and surrounding cellulitis. The patient was previously treated with Keflex and is now currently on doxycycline. A wound culture was done which demonstrated rare organisms. The patient denies any purulent drainage, foul-smelling discharge, or pain at the site. Her wound care has included keeping the wound covered while at work with gauze. Unfortunately, the patient does smoke as well and has a [id number] smoking history. The patient otherwise denies any fever, chills, nausea, vomiting, shortness of breath, chest pain or pressure, palpitations, orthopnea, lower extremity edema, syncope or presyncopal episodes. Progress of Wound: Wound is stable and improving - Physical Exam Vital Signs Temp Pulse Resp BP 97.8 F 63 18 158/89 H 07/07/17 14:56 07/07/17 14:56 07/07/17 14:56 07/07/17 14:56 General: Alert, Oriented x3, Cooperative, No apparent distress HEENT: Atraumatic Cardiovascular: Regular rate Extremities: No clubbing, No cyanosis, Capillary Refill Less than 3 Seconds, Diminished Peripheral Pulses, Edema - Generalized bilateral lower extremity edema Skin: Ulcer/ Wound - Ulceration present left posterior lower extremity, slough adhering to periwound bed, no signs of infection such as purulent drainage or increasing pain, wound edges are slightly macerated Wound Measurements and Assessment WC - Nurse 1 - General Ulcer Measurement Start: 06/16/17 13:32 Freq: Status: Active Protocol: Activity Type Activity Date Activity User E-Sign Co-Sign Detail Recorded Client Recorded Date Recorded By Document 07/07/17 14:56 DL [id number] 07/07/17 15:02 DL 07/07/17 14:56 Wound Center Nurse 1 [Ulcer Assessment] #1- LT CALF (POST TRAUMA ON 05/10/17) -Current Size (cm) - Length 0.7 -Current Size (cm) - Width 1.2 -Current Size (cm) - Depth 0.2 -Total Square Cm 0.84 -Photo Taken No -Exudate Amt Small (1-33%) -Exudate Type Serosanguineous -Wound Margin Distinct, Outline Attached -Granulation Amt Medium (34-66%) -Granulation Quality [place] -Necrosis Amt Medium (34-66%) -Necrotic Tissue Type Adherent Slough -Structure Exposed N/A -Texture (Sera-wound Skin Appearance) Scarring -Moisture (Sera-wound Skin Appearance Dry/Scaly ) -Color (Sera-wound Skin Appearance) Rubor -Temperature (Sera-wound Skin No Abnormality Appearance) (Pt Warm) -Ulcer Cleansing Rinsed/ Irrigated with Saline -Foul Odor after Cleansing No -Anesthetic Used 4% Lidocaine Solution [Edema Assessment] -Left Calf (cm) 37.6 -Left Ankle (cm) 21.6 WC - Nurse 2 - General Ulcer CM Notes Start: 06/16/17 13:32 Freq: Status: Active Protocol: Activity Type Activity Date Activity User E-Sign Co-Sign Detail Recorded Client Recorded Date Recorded By Document 07/07/17 16:03 DV [id number] 07/07/17 16:06 DV 07/07/17 16:03 Wound Center Nurse 2 [Procedure/Treatment] #1- LT CALF (POST TRAUMA ON 05/10/17) -Time 16:04 -Correct Patient Yes -Correct Side, Site, Position Yes -Correct Procedure Yes -Procedure Performed Yes -Type of Procedure Debridement -Clinical Debridement Subcutaneous -Post Debridement Size (cm) - Length 0.8 -Post Debridement Size (cm) - Width 1.6 -Post Debridement Size (cm) - Depth 0.3 -Total Square Cm 1.28 -Wound/Ulcer Outcome Not Healed -Ulcer Cleansing Rinsed/ Irrigated with Saline -Foul Odor after Cleansing No -Bioengineered Tissue No -Bleeding Controlled with Pressure -Treatment Response Procedure Tolerated Well [See Physician Procedure note for Specifics] Pain Scale: 0-10 Numeric [Pain] -Is Patient Pain Free? Yes Neurological: Neuro grossly intact Psych/Mental Status: Normal Affect, Alert and oriented to time, place, person, mood and affect Debridement Note Post-Debridement Measurements/Treatment WC - Nurse 2 - General Ulcer CM Notes Start: 06/16/17 13:32 Freq: Status: Active Protocol: Activity Type Activity Date Activity User E-Sign Co-Sign Detail Recorded Client Recorded Date Recorded By Document 06/16/17 14:45 DV [id number] 06/16/17 14:59 DV Document 06/23/17 16:12 DV [id number] 06/23/17 16:14 DV Document 06/30/17 15:46 DV [id number] 06/30/17 15:50 DV Document 07/07/17 16:03 DV [id number] 07/07/17 16:06 DV 06/16/17 06/23/17 06/30/17 14:45 16:12 15:46 Wound Center Nurse 2 #1- LT CALF (POST TRAUMA ON 05/10/17) -Time 14:47 16:12 15:48 -Correct Patient Yes Yes Yes -Correct Side, Site, Position Yes Yes Yes -Correct Procedure Yes Yes Yes -Procedure Performed Yes Yes Yes -Type of Procedure Debridement Debridement Debridement -Clinical Debridement Subcutaneous Subcutaneous Subcutaneous -Post Debridement Size (cm) - Length 1.6 1.3 1.0 -Post Debridement Size (cm) - Width 2.2 1.8 1.2 -Post Debridement Size (cm) - Depth 0.4 0.3 0.3 -Total Square Cm 3.52 2.34 1.20 -Wound/Ulcer Outcome Not Healed Not Healed Not Healed -Ulcer Cleansing Rinsed/ Rinsed/ Rinsed/ Irrigated with Irrigated with Irrigated with Saline Saline Saline -Foul Odor after Cleansing No No No -Bioengineered Tissue No No No -Bleeding Controlled with Pressure Pressure Pressure -Treatment Response Procedure Procedure Procedure Tolerated Well Tolerated Well Tolerated Well Pain Scale: 0-10 Numeric Is Patient Pain Free? Yes Yes Yes 07/07/17 16:03 Wound Center Nurse 2 #1- LT CALF (POST TRAUMA ON 05/10/17) -Time 16:04 -Correct Patient Yes -Correct Side, Site, Position Yes -Correct Procedure Yes -Procedure Performed Yes -Type of Procedure Debridement -Clinical Debridement Subcutaneous -Post Debridement Size (cm) - Length 0.8 -Post Debridement Size (cm) - Width 1.6 -Post Debridement Size (cm) - Depth 0.3 -Total Square Cm 1.28 -Wound/Ulcer Outcome Not Healed -Ulcer Cleansing Rinsed/ Irrigated with Saline -Foul Odor after Cleansing No -Bioengineered Tissue No -Bleeding Controlled with Pressure -Treatment Response Procedure Tolerated Well Pain Scale: 0-10 Numeric Is Patient Pain Free? Yes Wound debrided: Left lower extremity ulceration Laterality: Left Type of Debridement: Excisional debridement Anesthesia Used: 4% Lidocaine Solution Depth: in the subcutaneous layer Percentage of wound debrided: 100 Instrument Used: 3mm curette, 5mm curette Tissue Removed: Slough and fibrous tissue Severity: Fat Layer Exposed Amount of bleeding with debridement: Mild Patient tolerated procedure well Assessment/Plan Active Problems (Last Reviewed 06/09/17 @ 16:00 by Ashtyn Glaser) Nonhealing ulcer of left lower extremity with fat layer exposed (Acute) Tobacco abuse (Acute) Edema, lower extremity (Acute) Decreased pedal pulses (Acute) Assessment: Nonhealing ulcer left posterior calf status post traumatic injury which occurred at work gradually improving Plan: The patient was seen and examined at the wound center today and was updated on the plan of care. A subcutaneous debridement was performed today. The patient tolerated the procedure well. The patients wound care will consist of: Daily moistened Promogran,and Adaptic and gauze with LUL hose compression stockings for compression. Wound cultures were reviewed and demonstrated rare staph epidermidis, no antibiotic treatment indicated. Patient did complete her entire course of doxycycline, her cellulitis does appear to be resolved. Baseline bloodwork reviewed with patient prior and no abnormalities need to be addressed. Vascular studies reviewed and showed valvular incompetencies, therefore patient instructed to utilize her LUL hose compression stockings that she has at home and a vascular referral was placed. ABIs were done previously in the office which demonstrated 1.07 bilaterally. Patient educated on the detrimental effects of her smoking on wound healing and instructed to cut back and/or entirely quit smoking, deferred smoking cessation pharmacologic management to her PCP. Patient educated on the importance of diet on wound healing and instructed to increase protein and vitamin C intake. Patient verbalized understanding. Patient will follow up at wound healing center in one week or sooner if needed. This note was generated with [employer] dictation software. It may contain incorrect words, spelling, and punctuation that were not noted in checking the note before signing. Code Visit 111xxx-113xx: 23379 Lissette subq tissue 20 sq cm/<
[2017-07-14 15:13] VITALS: BP 120/71; PULSE 93; RESP 20; TEMP 35.9; BMI 27.2
--- NOTE | 2017-07-14 18:49 | PCM.WC.PN ---
(1) Nonhealing ulcer of left lower extremity with fat layer exposed Status: Acute Current Visit: Yes Code(s): L97.922 - Non-pressure chronic ulcer of unspecified part of left lower leg with fat layer exposed (2) Cellulitis of left lower extremity Status: Acute Current Visit: No Code(s): L03.116 - Cellulitis of left lower limb (3) Tobacco abuse Status: Acute Current Visit: Yes Code(s): Z72.0 - Tobacco use (4) Edema, lower extremity Status: Acute Current Visit: Yes Code(s): R60.0 - Localized edema (5) Decreased pedal pulses Status: Acute Current Visit: Yes Code(s): R09.89 - Other specified symptoms and signs involving the circulatory and respiratory systems Type of Wound Date of Service: 07/14/17 Chief Complaint: Wound and infection left lower posterior calf, s/p work injury History of Wound: This is a 51-year-old white female who presents to the wound healing center today for a follow-up of a wound/ulcer on her left posterior calf. This began on 05/10/2017 when she was at work and cut her leg on an unknown object when she was moving a table. She was seen at [facility] emergency department and her laceration was sutured. At that time her tetanus was up-to-date. The patient has been following up with corporate care who had referred her to the wound center because of nonhealing status status post suture removal and surrounding cellulitis. The patient was previously treated with Keflex and is now currently on doxycycline. A wound culture was done which demonstrated rare organisms. The patient denies any purulent drainage, foul-smelling discharge, or pain at the site. Her wound care has included keeping the wound covered while at work with gauze. Unfortunately, the patient does smoke as well and has a [id number] smoking history. The patient otherwise denies any fever, chills, nausea, vomiting, shortness of breath, chest pain or pressure, palpitations, orthopnea, lower extremity edema, syncope or presyncopal episodes. Progress of Wound: Wound is stable and slowly improving - Physical Exam Vital Signs Temp Pulse Resp BP 96.6 F L 93 20 H 120/71 07/14/17 15:13 07/14/17 15:13 07/14/17 15:13 07/14/17 15:13 General: Alert, Oriented x3, Cooperative, No apparent distress HEENT: Atraumatic Cardiovascular: Regular rate Extremities: Diminished Peripheral Pulses, Edema - Generalized bilateral lower extremity edema Skin: Ulcer/ Wound - Duration present left posterior lower extremity status post trauma, slough and bioburden present, no signs of infection at this time such as redness warmth or purulent drainage Wound Measurements and Assessment WC - Nurse 1 - General Ulcer Measurement Start: 06/16/17 13:32 Freq: Status: Active Protocol: Activity Type Activity Date Activity User E-Sign Co-Sign Detail Recorded Client Recorded Date Recorded By Document 07/14/17 15:13 [id number] 07/14/17 15:20 JS 07/14/17 15:13 Wound Center Nurse 1 [Ulcer Assessment] #1- LT CALF (POST TRAUMA ON 05/10/17) -Combined with other wound No -Current Size (cm) - Length 0.9 -Current Size (cm) - Width 1.5 -Current Size (cm) - Depth 0.2 -Total Square Cm 1.35 -Date of Last Picture (Recall this 06/16/17 field) -Photo Taken No -Epithelialization Small 1-33% -Tunneling No -Undermining/Tunneling No -Circular Undermining No -Classification - Thickness Full Thickness without Exposed Support Structure -Exudate Amt Small (1-33%) -Exudate Type Serosanguineous -Wound Margin Distinct, Outline Attached -Granulation Amt Small (1-33%) -Granulation Quality Pale [place] -Slough/Fibrin Yes -Necrosis Amt None Present (0 %) -Necrotic Tissue Type Adherent Slough -Structure Exposed N/A -Texture (Sera-wound Skin Appearance) No Abnormality -Moisture (Sera-wound Skin Appearance No Abnormality ) -Color (Sera-wound Skin Appearance) No Abnormality -Temperature (Sera-wound Skin No Abnormality Appearance) (Pt Warm) -Tenderness on Palpation (Sera-wound No Skin Appearance) -Ulcer Cleansing Rinsed/ Irrigated with Saline -Foul Odor after Cleansing No -Anesthetic Used 4% Lidocaine Solution [Edema Assessment] -Lower Limb Edema Present No WC - Nurse 2 - General Ulcer CM Notes Start: 06/16/17 13:32 Freq: Status: Active Protocol: Activity Type Activity Date Activity User E-Sign Co-Sign Detail Recorded Client Recorded Date Recorded By Document 07/14/17 16:43 DV [id number] 07/14/17 16:45 DV 07/14/17 16:43 Wound Center Nurse 2 [Procedure/Treatment] #1- LT CALF (POST TRAUMA ON 05/10/17) -Time 16:44 -Correct Patient Yes -Correct Side, Site, Position Yes -Correct Procedure Yes -Procedure Performed Yes -Type of Procedure Debridement -Clinical Debridement Subcutaneous -Post Debridement Size (cm) - Length 0.9 -Post Debridement Size (cm) - Width 1.5 -Post Debridement Size (cm) - Depth 0.2 -Total Square Cm 1.35 -Wound/Ulcer Outcome Not Healed -Ulcer Cleansing Rinsed/ Irrigated with Saline -Foul Odor after Cleansing No -Bioengineered Tissue No -Bleeding Controlled with Pressure -Treatment Response Procedure Tolerated Well [See Physician Procedure note for Specifics] Pain Scale: 0-10 Numeric [Pain] -Is Patient Pain Free? Yes Neurological: Neuro grossly intact Psych/Mental Status: Normal Affect, Alert and oriented to time, place, person, mood and affect Debridement Note Post-Debridement Measurements/Treatment WC - Nurse 2 - General Ulcer CM Notes Start: 06/16/17 13:32 Freq: Status: Active Protocol: Activity Type Activity Date Activity User E-Sign Co-Sign Detail Recorded Client Recorded Date Recorded By Document 06/16/17 14:45 DV [id number] 06/16/17 14:59 DV Document 06/23/17 16:12 DV [id number] 06/23/17 16:14 DV Document 06/30/17 15:46 DV [id number] 06/30/17 15:50 DV Document 07/07/17 16:03 DV [id number] 07/07/17 16:06 DV Document 07/14/17 16:43 DV [id number] 07/14/17 16:45 DV 06/16/17 06/23/17 06/30/17 14:45 16:12 15:46 Wound Center Nurse 2 #1- LT CALF (POST TRAUMA ON 05/10/17) -Time 14:47 16:12 15:48 -Correct Patient Yes Yes Yes -Correct Side, Site, Position Yes Yes Yes -Correct Procedure Yes Yes Yes -Procedure Performed Yes Yes Yes -Type of Procedure Debridement Debridement Debridement -Clinical Debridement Subcutaneous Subcutaneous Subcutaneous -Post Debridement Size (cm) - Length 1.6 1.3 1.0 -Post Debridement Size (cm) - Width 2.2 1.8 1.2 -Post Debridement Size (cm) - Depth 0.4 0.3 0.3 -Total Square Cm 3.52 2.34 1.20 -Wound/Ulcer Outcome Not Healed Not Healed Not Healed -Ulcer Cleansing Rinsed/ Rinsed/ Rinsed/ Irrigated with Irrigated with Irrigated with Saline Saline Saline -Foul Odor after Cleansing No No No -Bioengineered Tissue No No No -Bleeding Controlled with Pressure Pressure Pressure -Treatment Response Procedure Procedure Procedure Tolerated Well Tolerated Well Tolerated Well Pain Scale: 0-10 Numeric Is Patient Pain Free? Yes Yes Yes 07/07/17 07/14/17 16:03 16:43 Wound Center Nurse 2 #1- LT CALF (POST TRAUMA ON 05/10/17) -Time 16:04 16:44 -Correct Patient Yes Yes -Correct Side, Site, Position Yes Yes -Correct Procedure Yes Yes -Procedure Performed Yes Yes -Type of Procedure Debridement Debridement -Clinical Debridement Subcutaneous Subcutaneous -Post Debridement Size (cm) - Length 0.8 0.9 -Post Debridement Size (cm) - Width 1.6 1.5 -Post Debridement Size (cm) - Depth 0.3 0.2 -Total Square Cm 1.28 1.35 -Wound/Ulcer Outcome Not Healed Not Healed -Ulcer Cleansing Rinsed/ Rinsed/ Irrigated with Irrigated with Saline Saline -Foul Odor after Cleansing No No -Bioengineered Tissue No No -Bleeding Controlled with Pressure Pressure -Treatment Response Procedure Procedure Tolerated Well Tolerated Well Pain Scale: 0-10 Numeric Is Patient Pain Free? Yes Yes Wound debrided: Left posterior ulceration status post trauma Laterality: Left Type of Debridement: Excisional debridement Anesthesia Used: 4% Lidocaine Solution Depth: Down to and including healthy tissue, in the subcutaneous layer Percentage of wound debrided: 100 Instrument Used: 3mm curette Tissue Removed: Slough and bioburden Severity: Fat Layer Exposed Amount of bleeding with debridement: Mild Bleeding Controlled with: Pressure Patient tolerated procedure well Assessment/Plan Active Problems (Last Reviewed 06/09/17 @ 16:00 by Ashtyn Glaser) Nonhealing ulcer of left lower extremity with fat layer exposed (Acute) Tobacco abuse (Acute) Edema, lower extremity (Acute) Decreased pedal pulses (Acute) Assessment: Nonhealing ulcer left posterior calf status post traumatic injury which occurred at work gradually improving Plan: The patient was seen and examined at the wound center today and was updated on the plan of care. A subcutaneous debridement was performed today. The patient tolerated the procedure well. The patients wound care will consist of: Daily moistened Promogran,and Adaptic and gauze with LUL hose compression stockings for compression. Wound cultures were reviewed and demonstrated rare staph epidermidis, no antibiotic treatment indicated. Patient did complete her entire course of doxycycline, her cellulitis does appear to be resolved. Baseline bloodwork reviewed with patient prior and no abnormalities need to be addressed. Vascular studies reviewed and showed valvular incompetencies, therefore patient instructed to utilize her LUL hose compression stockings that she has at home and a vascular referral was placed. ABIs were done previously in the office which demonstrated 1.07 bilaterally. Patient educated on the detrimental effects of her smoking on wound healing and instructed to cut back and/or entirely quit smoking, deferred smoking cessation pharmacologic management to her PCP. Patient educated on the importance of diet on wound healing and instructed to increase protein and vitamin C intake. Patient verbalized understanding. Due to the patient's delayed wound healing, will apply for the use of Epifix as this may be beneficial to healing of the wound. Patient will follow up at wound healing center in one week or sooner if needed. This note was generated with [employer] dictation software. It may contain incorrect words, spelling, and punctuation that were not noted in checking the note before signing. Code Visit 111xxx-113xx: 30173 Lissette subq tissue 20 sq cm/<
--- NOTE | 2017-07-15 07:53 | PN.PCM_ITS ---
(1) Nonhealing ulcer of left lower extremity with fat layer exposed Status: Acute Current Visit: Yes Code(s): L97.922 - Non-pressure chronic ulcer of unspecified part of left lower leg with fat layer exposed (2) Cellulitis of left lower extremity Status: Acute Current Visit: No Code(s): L03.116 - Cellulitis of left lower limb (3) Tobacco abuse Status: Acute Current Visit: Yes Code(s): Z72.0 - Tobacco use (4) Edema, lower extremity Status: Acute Current Visit: Yes Code(s): R60.0 - Localized edema (5) Decreased pedal pulses Status: Acute Current Visit: Yes Code(s): R09.89 - Other specified symptoms and signs involving the circulatory and respiratory systems Type of Wound Date of Service: 07/14/17 Chief Complaint: Wound and infection left lower posterior calf, s/p work injury History of Wound: This is a 51-year-old white female who presents to the wound healing center today for a follow-up of a wound/ulcer on her left posterior calf. This began on 05/10/2017 when she was at work and cut her leg on an unknown object when she was moving a table. She was seen at [place] emergency department and her laceration was sutured. At that time her tetanus was up-to-date. The patient has been following up with corporate care who had referred her to the wound center because of nonhealing status status post suture removal and surrounding cellulitis. The patient was previously treated with Keflex and is now currently on doxycycline. A wound culture was done which demonstrated rare organisms. The patient denies any purulent drainage, foul-smelling discharge, or pain at the site. Her wound care has included keeping the wound covered while at work with gauze. Unfortunately, the patient does smoke as well and has a [id number] smoking history. The patient otherwise denies any fever, chills, nausea, vomiting, shortness of breath, chest pain or pressure, palpitations, orthopnea, lower extremity edema, syncope or presyncopal episodes. Progress of Wound: Wound is stable and slowly improving - Physical Exam Vital Signs Temp Pulse Resp BP 96.6 F L 93 20 H 120/71 07/14/17 15:13 07/14/17 15:13 07/14/17 15:13 07/14/17 15:13 General: Alert, Oriented x3, Cooperative, No apparent distress HEENT: Atraumatic Cardiovascular: Regular rate Extremities: Diminished Peripheral Pulses, Edema - Generalized bilateral lower extremity edema Skin: Ulcer/ Wound - Duration present left posterior lower extremity status post trauma, slough and bioburden present, no signs of infection at this time such as redness warmth or purulent drainage Wound Measurements and Assessment WC - Nurse 1 - General Ulcer Measurement Start: 06/16/17 13:32 Freq: Status: Active Protocol: Activity Type Activity Date Activity User E-Sign Co-Sign Detail Recorded Client Recorded Date Recorded By Document 07/14/17 15:13 [id number] 07/14/17 15:20 JS 07/14/17 15:13 Wound Center Nurse 1 [Ulcer Assessment] #1- LT CALF (POST TRAUMA ON 05/10/17) -Combined with other wound No -Current Size (cm) - Length 0.9 -Current Size (cm) - Width 1.5 -Current Size (cm) - Depth 0.2 -Total Square Cm 1.35 -Date of Last Picture (Recall this 06/16/17 field) -Photo Taken No -Epithelialization Small 1-33% -Tunneling No -Undermining/Tunneling No -Circular Undermining No -Classification - Thickness Full Thickness without Exposed Support Structure -Exudate Amt Small (1-33%) -Exudate Type Serosanguineous -Wound Margin Distinct, Outline Attached -Granulation Amt Small (1-33%) -Granulation Quality [place] -Slough/Fibrin Yes -Necrosis Amt None Present (0 %) -Necrotic Tissue Type Adherent Slough -Structure Exposed N/A -Texture (Sera-wound Skin Appearance) No Abnormality -Moisture (Sera-wound Skin Appearance No Abnormality ) -Color (Sera-wound Skin Appearance) No Abnormality -Temperature (Sera-wound Skin No Abnormality Appearance) (Pt Warm) -Tenderness on Palpation (Sera-wound No Skin Appearance) -Ulcer Cleansing Rinsed/ Irrigated with Saline -Foul Odor after Cleansing No -Anesthetic Used 4% Lidocaine Solution [Edema Assessment] -Lower Limb Edema Present No WC - Nurse 2 - General Ulcer CM Notes Start: 06/16/17 13:32 Freq: Status: Active Protocol: Activity Type Activity Date Activity User E-Sign Co-Sign Detail Recorded Client Recorded Date Recorded By Document 07/14/17 16:43 DV [id number] 07/14/17 16:45 DV 07/14/17 16:43 Wound Center Nurse 2 [Procedure/Treatment] #1- LT CALF (POST TRAUMA ON 05/10/17) -Time 16:44 -Correct Patient Yes -Correct Side, Site, Position Yes -Correct Procedure Yes -Procedure Performed Yes -Type of Procedure Debridement -Clinical Debridement Subcutaneous -Post Debridement Size (cm) - Length 0.9 -Post Debridement Size (cm) - Width 1.5 -Post Debridement Size (cm) - Depth 0.2 -Total Square Cm 1.35 -Wound/Ulcer Outcome Not Healed -Ulcer Cleansing Rinsed/ Irrigated with Saline -Foul Odor after Cleansing No -Bioengineered Tissue No -Bleeding Controlled with Pressure -Treatment Response Procedure Tolerated Well [See Physician Procedure note for Specifics] Pain Scale: 0-10 Numeric [Pain] -Is Patient Pain Free? Yes Neurological: Neuro grossly intact Psych/Mental Status: Normal Affect, Alert and oriented to time, place, person, mood and affect Debridement Note Post-Debridement Measurements/Treatment WC - Nurse 2 - General Ulcer CM Notes Start: 06/16/17 13:32 Freq: Status: Active Protocol: Activity Type Activity Date Activity User E-Sign Co-Sign Detail Recorded Client Recorded Date Recorded By Document 06/16/17 14:45 DV [id number] 06/16/17 14:59 DV Document 06/23/17 16:12 DV [id number] 06/23/17 16:14 DV Document 06/30/17 15:46 DV [id number] 06/30/17 15:50 DV Document 07/07/17 16:03 DV [id number] 07/07/17 16:06 DV Document 07/14/17 16:43 DV [id number] 07/14/17 16:45 DV 06/16/17 06/23/17 06/30/17 14:45 16:12 15:46 Wound Center Nurse 2 #1- LT CALF (POST TRAUMA ON 05/10/17) -Time 14:47 16:12 15:48 -Correct Patient Yes Yes Yes -Correct Side, Site, Position Yes Yes Yes -Correct Procedure Yes Yes Yes -Procedure Performed Yes Yes Yes -Type of Procedure Debridement Debridement Debridement -Clinical Debridement Subcutaneous Subcutaneous Subcutaneous -Post Debridement Size (cm) - Length 1.6 1.3 1.0 -Post Debridement Size (cm) - Width 2.2 1.8 1.2 -Post Debridement Size (cm) - Depth 0.4 0.3 0.3 -Total Square Cm 3.52 2.34 1.20 -Wound/Ulcer Outcome Not Healed Not Healed Not Healed -Ulcer Cleansing Rinsed/ Rinsed/ Rinsed/ Irrigated with Irrigated with Irrigated with Saline Saline Saline -Foul Odor after Cleansing No No No -Bioengineered Tissue No No No -Bleeding Controlled with Pressure Pressure Pressure -Treatment Response Procedure Procedure Procedure Tolerated Well Tolerated Well Tolerated Well Pain Scale: 0-10 Numeric Is Patient Pain Free? Yes Yes Yes 07/07/17 07/14/17 16:03 16:43 Wound Center Nurse 2 #1- LT CALF (POST TRAUMA ON 05/10/17) -Time 16:04 16:44 -Correct Patient Yes Yes -Correct Side, Site, Position Yes Yes -Correct Procedure Yes Yes -Procedure Performed Yes Yes -Type of Procedure Debridement Debridement -Clinical Debridement Subcutaneous Subcutaneous -Post Debridement Size (cm) - Length 0.8 0.9 -Post Debridement Size (cm) - Width 1.6 1.5 -Post Debridement Size (cm) - Depth 0.3 0.2 -Total Square Cm 1.28 1.35 -Wound/Ulcer Outcome Not Healed Not Healed -Ulcer Cleansing Rinsed/ Rinsed/ Irrigated with Irrigated with Saline Saline -Foul Odor after Cleansing No No -Bioengineered Tissue No No -Bleeding Controlled with Pressure Pressure -Treatment Response Procedure Procedure Tolerated Well Tolerated Well Pain Scale: 0-10 Numeric Is Patient Pain Free? Yes Yes Wound debrided: Left posterior ulceration status post trauma Laterality: Left Type of Debridement: Excisional debridement Anesthesia Used: 4% Lidocaine Solution Depth: Down to and including healthy tissue, in the subcutaneous layer Percentage of wound debrided: 100 Instrument Used: 3mm curette Tissue Removed: Slough and bioburden Severity: Fat Layer Exposed Amount of bleeding with debridement: Mild Bleeding Controlled with: Pressure Patient tolerated procedure well Assessment/Plan Active Problems (Last Reviewed 06/09/17 @ 16:00 by Ashtyn Glaser) Nonhealing ulcer of left lower extremity with fat layer exposed (Acute) Tobacco abuse (Acute) Edema, lower extremity (Acute) Decreased pedal pulses (Acute) Assessment: Nonhealing ulcer left posterior calf status post traumatic injury which occurred at work gradually improving Plan: The patient was seen and examined at the wound center today and was updated on the plan of care. A subcutaneous debridement was performed today. The patient tolerated the procedure well. The patients wound care will consist of: Daily moistened Promogran,and Adaptic and gauze with LUL hose compression stockings for compression. Wound cultures were reviewed and demonstrated rare staph epidermidis, no antibiotic treatment indicated. Patient did complete her entire course of doxycycline, her cellulitis does appear to be resolved. Baseline bloodwork reviewed with patient prior and no abnormalities need to be addressed. Vascular studies reviewed and showed valvular incompetencies, therefore patient instructed to utilize her LUL hose compression stockings that she has at home and a vascular referral was placed. ABIs were done previously in the office which demonstrated 1.07 bilaterally. Patient educated on the detrimental effects of her smoking on wound healing and instructed to cut back and/or entirely quit smoking, deferred smoking cessation pharmacologic management to her PCP. Patient educated on the importance of diet on wound healing and instructed to increase protein and vitamin C intake. Patient verbalized understanding. Due to the patient's delayed wound healing, will apply for the use of Epifix as this may be beneficial to healing of the wound. Patient will follow up at wound healing center in one week or sooner if needed. This note was generated with [employer] dictation software. It may contain incorrect words, spelling, and punctuation that were not noted in checking the note before signing. Code Visit [id number]: [id number] Lissette subq tissue 20 sq cm/<
== END 2017-07-16 23:59 ==
LOC: WC 15:00
PROVIDERS: Family Provider Family Medicine; Visit Provider Nurse Practitioner Family
DX: S81.812A Laceration without foreign body, left lower leg, initial encounter (principal); W45.8XXA Other foreign body or object entering through skin, initial encounter; Y93.89 Activity, other specified; Y92.89 Other specified places as the place of occurrence of the external cause; Y99.0 Civilian activity done for income or pay; L03.116 Cellulitis of left lower limb; Z72.0 Tobacco use; R60.0 Localized edema; R09.89 Other specified symptoms and signs involving the circulatory and respiratory systems; Z79.899 Other long term (current) drug therapy; F17.200 Nicotine dependence, unspecified, uncomplicated
CPT/HCPCS: 11042; 80053; 83036; 85025; 85652; 86140; 87070; 87075; 87077; 87186; 87205; 93970; 99214; G0463

== ENCOUNTER 2017-08-11 13:00 | Outpatient (RCR) | payer OTHER, SELFPAY ==
[2017-07-17 01:05] VITALS: PULSE 93; RESP 20; TEMP 35.9
[2017-07-21 12:38] VITALS: BP 119/67; PULSE 108; RESP 16; TEMP 37.1
--- NOTE | 2017-07-21 23:00 | PCM.WC.PN ---
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 This began on 05/10/2017 when she was at work and cut her leg on an unknown object when she was moving a table. She was seen at [place] emergency department and her laceration was sutured. At that time her tetanus was up-to-date. The patient has been following up with corporate care who had referred her to the wound center because of nonhealing status status post suture removal and surrounding cellulitis. The patient was previously treated with Keflex and is now currently on doxycycline. A wound culture was done which demonstrated rare organisms. The patient denies any purulent drainage, foul-smelling discharge, or pain at the site. Her wound care has included keeping the wound covered while at work with gauze. Unfortunately, the patient does smoke as well and has a [id number] smoking history. The patient otherwise denies any fever, chills, nausea, vomiting, shortness of breath, chest pain or pressure, palpitations, orthopnea, lower extremity edema, syncope or presyncopal episodes. Progress of Wound: Courtesy Visit for Daniel Mann NP. Improving. - Physical Exam Vital Signs Temp Pulse Resp BP 98.7 F 108 H 16 119/67 07/21/17 12:38 07/21/17 12:38 07/21/17 12:38 07/21/17 12:38 General: Alert, Oriented x3, Cooperative, No apparent distress HEENT: Atraumatic, Normocephalic Oral: Moist Mucosa Neck: Supple Lungs: Normal air movement Cardiovascular: Regular rate Wound Measurements and Assessment WC - Nurse 1 - General Ulcer Measurement Start: 07/21/17 12:37 Freq: Status: Active Protocol: Activity Type Activity Date Activity User E-Sign Co-Sign Detail Recorded Client Recorded Date Recorded By Document 07/21/17 12:38 [facility] [id number] 07/21/17 12:43 [facility] 07/21/17 12:38 Wound Center Nurse 1 [Ulcer Assessment] #1- LT CALF (POST TRAUMA ON 05/10/17) -Combined with other wound No -Current Size (cm) - Length 0.5 -Current Size (cm) - Width 1.4 -Current Size (cm) - Depth 0.1 -Total Square Cm 0.70 -Date of Last Picture (Recall this 07/21/17 field) -Photo Taken Yes -Epithelialization Small 1-33% -Tunneling No -Undermining/Tunneling No -Circular Undermining No -Exudate Amt Small (1-33%) -Exudate Type Serosanguineous -Wound Margin Distinct, Outline Attached -Granulation Amt Medium (34-66%) -Granulation Quality [place] -Slough/Fibrin Yes -Necrosis Amt Small (1-33%) -Necrotic Tissue Type Adherent Slough -Structure Exposed None/Limited to Skin Breakdown -Texture (Sera-wound Skin Appearance) Scarring -Moisture (Sera-wound Skin Appearance Dry/Scaly ) -Color (Sera-wound Skin Appearance) Assessed -Temperature (Sera-wound Skin No Abnormality Appearance) (Pt Warm) -Tenderness on Palpation (Sera-wound No Skin Appearance) -Ulcer Cleansing Rinsed/ Irrigated with Saline -Foul Odor after Cleansing No -Anesthetic Used 5% Lidocaine Gel WC - Nurse 2 - General Ulcer CM Notes Start: 07/21/17 12:37 Freq: Status: Active Protocol: Activity Type Activity Date Activity User E-Sign Co-Sign Detail Recorded Client Recorded Date Recorded By Document 07/21/17 13:05 [id number] 07/21/17 13:07 DV 07/21/17 13:05 Wound Center Nurse 2 [Procedure/Treatment] -Time 13:06 -Correct Patient Yes -Correct Side, Site, Position Yes -Correct Procedure Yes -Procedure Performed Yes -Type of Procedure Debridement -Clinical Debridement Subcutaneous -Post Debridement Size (cm) - Length 0.4 -Post Debridement Size (cm) - Width 1.4 -Post Debridement Size (cm) - Depth 0.2 -Total Square Cm 0.56 -Wound/Ulcer Outcome Not Healed -Ulcer Cleansing Rinsed/ Irrigated with Saline -Foul Odor after Cleansing No -Bioengineered Tissue No -Bleeding Controlled with Pressure -Treatment Response Procedure Tolerated Well [See Physician Procedure note for Specifics] Pain Scale: 0-10 Numeric [Pain] -Is Patient Pain Free? Yes Musculoskeletal: No Muscle Wasting Neurological: Cranial nerves II-XII grossly intact Psych/Mental Status: Normal Affect Debridement Note Post-Debridement Measurements/Treatment WC - Nurse 2 - General Ulcer CM Notes Start: 07/21/17 12:37 Freq: Status: Active Protocol: Activity Type Activity Date Activity User E-Sign Co-Sign Detail Recorded Client Recorded Date Recorded By Document 07/21/17 13:05 DV [id number] 07/21/17 13:07 DV 07/21/17 13:05 Wound Center Nurse 2 #1- LT CALF (POST TRAUMA ON 05/10/17) -Time 13:06 -Correct Patient Yes -Correct Side, Site, Position Yes -Correct Procedure Yes -Procedure Performed Yes -Type of Procedure Debridement -Clinical Debridement Subcutaneous -Post Debridement Size (cm) - Length 0.4 -Post Debridement Size (cm) - Width 1.4 -Post Debridement Size (cm) - Depth 0.2 -Total Square Cm 0.56 -Wound/Ulcer Outcome Not Healed -Ulcer Cleansing Rinsed/ Irrigated with Saline -Foul Odor after Cleansing No -Bioengineered Tissue No -Bleeding Controlled with Pressure -Treatment Response Procedure Tolerated Well Pain Scale: 0-10 Numeric Is Patient Pain Free? Yes Wound debrided: Left Lower Extremity Wound. Wound Grade/Stage: Stage II Type of Debridement: Excisional debridement Anesthesia Used: 5% Lidocaine Gel Depth: Down to and including healthy tissue, in the subcutaneous layer Percentage of wound debrided: 100 Instrument Used: 5mm curette Tissue Removed: Slough and Devitalized tissue Severity: Fat Layer Exposed Amount of bleeding with debridement: Mild Bleeding Controlled with: Pressure Patient tolerated procedure well Assessment/Plan Active Problems (Last Reviewed 06/09/17 @ 16:00 by Ashtyn Glaser) Nonhealing ulcer of left lower extremity with fat layer exposed (Acute) Assessment: Nonhealing ulcer left posterior calf status post traumatic injury which occurred at work gradually improving Plan: Some improvement noted in the past week. Debridement done as documented above, procedure was well tolerated. Continue Pomogran with adaptic covering daily. Continue Tubi link trainer for edema management. Continue increased protein intake/supplements. Follow up in 2 weeks. This note was generated with [employer]ation software. It may contain incorrect words, spelling, and punctuation that were not noted in checking the note before signing.
--- NOTE | 2017-07-21 23:06 | PN.PCM_ITS ---
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 This began on 05/10/2017 when she was at work and cut her leg on an unknown object when she was moving a table. She was seen at [place] emergency department and her laceration was sutured. At that time her tetanus was up-to-date. The patient has been following up with corporate care who had referred her to the wound center because of nonhealing status status post suture removal and surrounding cellulitis. The patient was previously treated with Keflex and is now currently on doxycycline. A wound culture was done which demonstrated rare organisms. The patient denies any purulent drainage, foul-smelling discharge, or pain at the site. Her wound care has included keeping the wound covered while at work with gauze. Unfortunately, the patient does smoke as well and has a [id number] smoking history. The patient otherwise denies any fever, chills, nausea, vomiting, shortness of breath, chest pain or pressure, palpitations, orthopnea, lower extremity edema, syncope or presyncopal episodes. Progress of Wound: Courtesy Visit for Daniel Mann NP. Improving. - Physical Exam Vital Signs Temp Pulse Resp BP 98.7 F 108 H 16 119/67 07/21/17 12:38 07/21/17 12:38 07/21/17 12:38 07/21/17 12:38 General: Alert, Oriented x3, Cooperative, No apparent distress HEENT: Atraumatic, Normocephalic Oral: Moist Mucosa Neck: Supple Lungs: Normal air movement Cardiovascular: Regular rate Wound Measurements and Assessment WC - Nurse 1 - General Ulcer Measurement Start: 07/21/17 12:37 Freq: Status: Active Protocol: Activity Type Activity Date Activity User E-Sign Co-Sign Detail Recorded Client Recorded Date Recorded By Document 07/21/17 12:38 [facility] [id number] 07/21/17 12:43 [facility] 07/21/17 12:38 Wound Center Nurse 1 [Ulcer Assessment] #1- LT CALF (POST TRAUMA ON 05/10/17) -Combined with other wound No -Current Size (cm) - Length 0.5 -Current Size (cm) - Width 1.4 -Current Size (cm) - Depth 0.1 -Total Square Cm 0.70 -Date of Last Picture (Recall this 07/21/17 field) -Photo Taken Yes -Epithelialization Small 1-33% -Tunneling No -Undermining/Tunneling No -Circular Undermining No -Exudate Amt Small (1-33%) -Exudate Type Serosanguineous -Wound Margin Distinct, Outline Attached -Granulation Amt Medium (34-66%) -Granulation Quality [place] -Slough/Fibrin Yes -Necrosis Amt Small (1-33%) -Necrotic Tissue Type Adherent Slough -Structure Exposed None/Limited to Skin Breakdown -Texture (Sera-wound Skin Appearance) Scarring -Moisture (Sera-wound Skin Appearance Dry/Scaly ) -Color (Sera-wound Skin Appearance) Assessed -Temperature (Sera-wound Skin No Abnormality Appearance) (Pt Warm) -Tenderness on Palpation (Sera-wound No Skin Appearance) -Ulcer Cleansing Rinsed/ Irrigated with Saline -Foul Odor after Cleansing No -Anesthetic Used 5% Lidocaine Gel WC - Nurse 2 - General Ulcer CM Notes Start: 07/21/17 12:37 Freq: Status: Active Protocol: Activity Type Activity Date Activity User E-Sign Co-Sign Detail Recorded Client Recorded Date Recorded By Document 07/21/17 13:05 [id number] 07/21/17 13:07 DV 07/21/17 13:05 Wound Center Nurse 2 [Procedure/Treatment] -Time 13:06 -Correct Patient Yes -Correct Side, Site, Position Yes -Correct Procedure Yes -Procedure Performed Yes -Type of Procedure Debridement -Clinical Debridement Subcutaneous -Post Debridement Size (cm) - Length 0.4 -Post Debridement Size (cm) - Width 1.4 -Post Debridement Size (cm) - Depth 0.2 -Total Square Cm 0.56 -Wound/Ulcer Outcome Not Healed -Ulcer Cleansing Rinsed/ Irrigated with Saline -Foul Odor after Cleansing No -Bioengineered Tissue No -Bleeding Controlled with Pressure -Treatment Response Procedure Tolerated Well [See Physician Procedure note for Specifics] Pain Scale: 0-10 Numeric [Pain] -Is Patient Pain Free? Yes Musculoskeletal: No Muscle Wasting Neurological: Cranial nerves II-XII grossly intact Psych/Mental Status: Normal Affect Debridement Note Post-Debridement Measurements/Treatment WC - Nurse 2 - General Ulcer CM Notes Start: 07/21/17 12:37 Freq: Status: Active Protocol: Activity Type Activity Date Activity User E-Sign Co-Sign Detail Recorded Client Recorded Date Recorded By Document 07/21/17 13:05 DV [id number] 07/21/17 13:07 DV 07/21/17 13:05 Wound Center Nurse 2 #1- LT CALF (POST TRAUMA ON 05/10/17) -Time 13:06 -Correct Patient Yes -Correct Side, Site, Position Yes -Correct Procedure Yes -Procedure Performed Yes -Type of Procedure Debridement -Clinical Debridement Subcutaneous -Post Debridement Size (cm) - Length 0.4 -Post Debridement Size (cm) - Width 1.4 -Post Debridement Size (cm) - Depth 0.2 -Total Square Cm 0.56 -Wound/Ulcer Outcome Not Healed -Ulcer Cleansing Rinsed/ Irrigated with Saline -Foul Odor after Cleansing No -Bioengineered Tissue No -Bleeding Controlled with Pressure -Treatment Response Procedure Tolerated Well Pain Scale: 0-10 Numeric Is Patient Pain Free? Yes Wound debrided: Left Lower Extremity Wound. Wound Grade/Stage: Stage II Type of Debridement: Excisional debridement Anesthesia Used: 5% Lidocaine Gel Depth: Down to and including healthy tissue, in the subcutaneous layer Percentage of wound debrided: 100 Instrument Used: 5mm curette Tissue Removed: Slough and Devitalized tissue Severity: Fat Layer Exposed Amount of bleeding with debridement: Mild Bleeding Controlled with: Pressure Patient tolerated procedure well Assessment/Plan Active Problems (Last Reviewed 06/09/17 @ 16:00 by Ashtyn Glaser) Nonhealing ulcer of left lower extremity with fat layer exposed (Acute) Assessment: Nonhealing ulcer left posterior calf status post traumatic injury which occurred at work gradually improving Plan: Some improvement noted in the past week. Debridement done as documented above, procedure was well tolerated. Continue Pomogran with adaptic covering daily. Continue Tubi publishing editor for edema management. Continue increased protein intake/supplements. Follow up in 2 weeks. This note was generated with [employer] software. It may contain incorrect words, spelling, and punctuation that were not noted in checking the note before signing.
[2017-08-04 13:26] VITALS: BP 121/61; PULSE 89; RESP 18; TEMP 36.9
--- NOTE | 2017-08-04 19:39 | PCM.WC.PN ---
(1) Decreased pedal pulses Status: Acute Code(s): R09.89 - Other specified symptoms and signs involving the circulatory and respiratory systems (2) Edema, lower extremity Status: Acute Code(s): R60.0 - Localized edema (3) Nonhealing ulcer of left lower extremity with fat layer exposed Status: Acute Code(s): L97.922 - Non-pressure chronic ulcer of unspecified part of left lower leg with fat layer exposed (4) Tobacco abuse Status: Acute Code(s): Z72.0 - Tobacco use Type of Wound Date of Service: 08/04/17 Chief Complaint: Wound and infection left lower posterior calf, s/p work injury History of Wound: This is a 51-year-old white female who presents to the wound healing center today for a follow-up of a wound/ulcer on her left posterior calf. This began on 05/10/2017 when she was at work and cut her leg on an unknown object when she was moving a table. She was seen at [place] emergency department and her laceration was sutured. At that time her tetanus was up-to-date. The patient has been following up with corporate care who had referred her to the wound center because of nonhealing status status post suture removal and surrounding cellulitis. The patient was previously treated with Keflex and is now currently on doxycycline. A wound culture was done which demonstrated rare organisms. The patient denies any purulent drainage, foul-smelling discharge, or pain at the site. Her wound care has included keeping the wound covered while at work with gauze. Unfortunately, the patient does smoke as well and has a [id number] smoking history. The patient otherwise denies any fever, chills, nausea, vomiting, shortness of breath, chest pain or pressure, palpitations, orthopnea, lower extremity edema, syncope or presyncopal episodes. Progress of Wound: Stable and improving - Physical Exam Vital Signs Temp Pulse Resp BP 98.4 F 89 18 121/61 H 08/04/17 13:26 08/04/17 13:26 08/04/17 13:26 08/04/17 13:26 General: Alert, Oriented x3, Cooperative, No apparent distress HEENT: Atraumatic Cardiovascular: Regular rate Extremities: Diminished Peripheral Pulses, Edema - generalized BLLE Skin: Ulcer/ Wound - ulceration present left posterior calf, improving, slough adhered to wound edges Neurological: Neuro grossly intact Psych/Mental Status: Normal Affect, Alert and oriented to time, place, person, mood and affect Debridement Note Post-Debridement Measurements/Treatment WC - Nurse 2 - General Ulcer CM Notes Start: 07/21/17 12:37 Freq: Status: Active Protocol: Activity Type Activity Date Activity User E-Sign Co-Sign Detail Recorded Client Recorded Date Recorded By Document 07/21/17 13:05 DV [id number] 07/21/17 13:07 DV Document 08/04/17 13:56 DV [id number] 08/04/17 13:57 DV 07/21/17 08/04/17 13:05 13:56 Wound Center Nurse 2 #1- LT CALF (POST TRAUMA ON 05/10/17) -Time 13:06 13:56 -Correct Patient Yes Yes -Correct Side, Site, Position Yes Yes -Correct Procedure Yes Yes -Procedure Performed Yes Yes -Type of Procedure Debridement Debridement -Clinical Debridement Subcutaneous Subcutaneous -Post Debridement Size (cm) - Length 0.4 0.3 -Post Debridement Size (cm) - Width 1.4 0.9 -Post Debridement Size (cm) - Depth 0.2 0.1 -Total Square Cm 0.56 0.27 -Wound/Ulcer Outcome Not Healed Not Healed -Ulcer Cleansing Rinsed/ Rinsed/ Irrigated with Irrigated with Saline Saline -Foul Odor after Cleansing No No -Bioengineered Tissue No No -Bleeding Controlled with Pressure Pressure -Treatment Response Procedure Procedure Tolerated Well Tolerated Well Pain Scale: 0-10 Numeric Is Patient Pain Free? Yes Yes Wound debrided: Left posterior calf ulcer Laterality: Left Type of Debridement: Excisional debridement Anesthesia Used: 5% Lidocaine Gel Depth: Down to and including healthy tissue, in the subcutaneous layer Percentage of wound debrided: 100 Instrument Used: 5mm curette Tissue Removed: slough and devitalized tissue Severity: Fat Layer Exposed Amount of bleeding with debridement: Mild Bleeding Controlled with: Pressure Patient tolerated procedure well Assessment/Plan Assessment: Nonhealing ulcer left posterior calf status post traumatic injury which occurred at work gradually improving Plan: Some improvement noted in the past week. Debridement done as documented above, procedure was well tolerated. Continue Pomogran with adaptic covering daily. Continue compression stockings for edema management. Continue increased protein intake/supplements. Follow up in 2 weeks. This note was generated with [employer] software. It may contain incorrect words, spelling, and punctuation that were not noted in checking the note before signing. Code Visit 111xxx-113xx: [id number] Lissette subq tissue 20 sq cm/<
--- NOTE | 2017-08-09 08:42 | PN.PCM_ITS ---
(1) Decreased pedal pulses Status: Acute Code(s): R09.89 - Other specified symptoms and signs involving the circulatory and respiratory systems (2) Edema, lower extremity Status: Acute Code(s): R60.0 - Localized edema (3) Nonhealing ulcer of left lower extremity with fat layer exposed Status: Acute Code(s): L97.922 - Non-pressure chronic ulcer of unspecified part of left lower leg with fat layer exposed (4) Tobacco abuse Status: Acute Code(s): Z72.0 - Tobacco use Type of Wound Date of Service: 08/04/17 Chief Complaint: Wound and infection left lower posterior calf, s/p work injury History of Wound: This is a 51-year-old white female who presents to the wound healing center today for a follow-up of a wound/ulcer on her left posterior calf. This began on 05/10/2017 when she was at work and cut her leg on an unknown object when she was moving a table. She was seen at [place] emergency department and her laceration was sutured. At that time her tetanus was up-to-date. The patient has been following up with corporate care who had referred her to the wound center because of nonhealing status status post suture removal and surrounding cellulitis. The patient was previously treated with Keflex and is now currently on doxycycline. A wound culture was done which demonstrated rare organisms. The patient denies any purulent drainage, foul-smelling discharge, or pain at the site. Her wound care has included keeping the wound covered while at work with gauze. Unfortunately, the patient does smoke as well and has a [id number] smoking history. The patient otherwise denies any fever, chills, nausea, vomiting, shortness of breath, chest pain or pressure, palpitations, orthopnea, lower extremity edema, syncope or presyncopal episodes. Progress of Wound: Stable and improving - Physical Exam Vital Signs Temp Pulse Resp BP 98.4 F 89 18 121/61 H 08/04/17 13:26 08/04/17 13:26 08/04/17 13:26 08/04/17 13:26 General: Alert, Oriented x3, Cooperative, No apparent distress HEENT: Atraumatic Cardiovascular: Regular rate Extremities: Diminished Peripheral Pulses, Edema - generalized BLLE Skin: Ulcer/ Wound - ulceration present left posterior calf, improving, slough adhered to wound edges Neurological: Neuro grossly intact Psych/Mental Status: Normal Affect, Alert and oriented to time, place, person, mood and affect Debridement Note Post-Debridement Measurements/Treatment WC - Nurse 2 - General Ulcer CM Notes Start: 07/21/17 12:37 Freq: Status: Active Protocol: Activity Type Activity Date Activity User E-Sign Co-Sign Detail Recorded Client Recorded Date Recorded By Document 07/21/17 13:05 DV [id number] 07/21/17 13:07 DV Document 08/04/17 13:56 DV [id number] 08/04/17 13:57 DV 07/21/17 08/04/17 13:05 13:56 Wound Center Nurse 2 #1- LT CALF (POST TRAUMA ON 05/10/17) -Time 13:06 13:56 -Correct Patient Yes Yes -Correct Side, Site, Position Yes Yes -Correct Procedure Yes Yes -Procedure Performed Yes Yes -Type of Procedure Debridement Debridement -Clinical Debridement Subcutaneous Subcutaneous -Post Debridement Size (cm) - Length 0.4 0.3 -Post Debridement Size (cm) - Width 1.4 0.9 -Post Debridement Size (cm) - Depth 0.2 0.1 -Total Square Cm 0.56 0.27 -Wound/Ulcer Outcome Not Healed Not Healed -Ulcer Cleansing Rinsed/ Rinsed/ Irrigated with Irrigated with Saline Saline -Foul Odor after Cleansing No No -Bioengineered Tissue No No -Bleeding Controlled with Pressure Pressure -Treatment Response Procedure Procedure Tolerated Well Tolerated Well Pain Scale: 0-10 Numeric Is Patient Pain Free? Yes Yes Wound debrided: Left posterior calf ulcer Laterality: Left Type of Debridement: Excisional debridement Anesthesia Used: 5% Lidocaine Gel Depth: Down to and including healthy tissue, in the subcutaneous layer Percentage of wound debrided: 100 Instrument Used: 5mm curette Tissue Removed: slough and devitalized tissue Severity: Fat Layer Exposed Amount of bleeding with debridement: Mild Bleeding Controlled with: Pressure Patient tolerated procedure well Assessment/Plan Assessment: Nonhealing ulcer left posterior calf status post traumatic injury which occurred at work gradually improving Plan: Some improvement noted in the past week. Debridement done as documented above, procedure was well tolerated. Continue Pomogran with adaptic covering daily. Continue compression stockings for edema management. Continue increased protein intake/supplements. Follow up in 2 weeks. This note was generated with [employer] software. It may contain incorrect words, spelling, and punctuation that were not noted in checking the note before signing. Code Visit 111xxx-113xx: [id number] Lissette subq tissue 20 sq cm/<
[2017-08-11 13:09] VITALS: BP 124/73; PULSE 87; RESP 16; TEMP 36.9
--- NOTE | 2017-08-11 18:40 | PCM.WC.PN ---
(1) Decreased pedal pulses Status: Acute Code(s): R09.89 - Other specified symptoms and signs involving the circulatory and respiratory systems (2) Edema, lower extremity Status: Acute Code(s): R60.0 - Localized edema (3) Nonhealing ulcer of left lower extremity with fat layer exposed Status: Acute Code(s): L97.922 - Non-pressure chronic ulcer of unspecified part of left lower leg with fat layer exposed (4) Tobacco abuse Status: Acute Code(s): Z72.0 - Tobacco use Type of Wound Date of Service: 08/16/17 Chief Complaint: Wound and infection left lower posterior calf, s/p work injury History of Wound: This is a 51-year-old white female who presents to the wound healing center today for a follow-up of a wound/ulcer on her left posterior calf. This began on 05/10/2017 when she was at work and cut her leg on an unknown object when she was moving a table. She was seen at [place] emergency department and her laceration was sutured. At that time her tetanus was up-to-date. The patient has been following up with corporate care who had referred her to the wound center because of nonhealing status status post suture removal and surrounding cellulitis. The patient was previously treated with Keflex and is now currently on doxycycline. A wound culture was done which demonstrated rare organisms. The patient denies any purulent drainage, foul-smelling discharge, or pain at the site. Her wound care has included keeping the wound covered while at work with gauze. Unfortunately, the patient does smoke as well and has a [id number] smoking history. The patient otherwise denies any fever, chills, nausea, vomiting, shortness of breath, chest pain or pressure, palpitations, orthopnea, lower extremity edema, syncope or presyncopal episodes. Progress of Wound: Healed and epithelialized, no signs of infection at this time. The patient otherwise denies any fever, chills, nausea, vomiting, shortness of breath, chest pain or pressure, palpitations, orthopnea, lower extremity edema, syncope or presyncopal episodes. - Physical Exam Vital Signs Temp Pulse Resp BP 98.4 F 87 16 124/73 H 08/11/17 13:09 08/11/17 13:09 08/11/17 13:09 08/11/17 13:09 General: Alert, Oriented x3, Cooperative, No apparent distress HEENT: Atraumatic Lungs: Clear to auscultation Cardiovascular: Regular rate Extremities: Capillary Refill Less than 3 Seconds, Edema - Generalized lower extremity edema Skin: Ulcer/ Wound - Ulcer of left posterior lower extremity has completely healed and is well epithelialized, no signs of infection at this time. Neurological: Neuro grossly intact Psych/Mental Status: Normal Affect, Alert and oriented to time, place, person, mood and affect Debridement Note Post-Debridement Measurements/Treatment WC - Nurse 2 - General Ulcer CM Notes Start: 07/21/17 12:37 Freq: Status: Active Protocol: Activity Type Activity Date Activity User E-Sign Co-Sign Detail Recorded Client Recorded Date Recorded By Document 07/21/17 13:05 DV [id number] 07/21/17 13:07 DV Document 08/04/17 13:56 DV [id number] 08/04/17 13:57 DV Document 08/11/17 13:49 DV [id number] 08/11/17 13:52 DV 07/21/17 08/04/17 08/11/17 13:05 13:56 13:49 Wound Center Nurse 2 #1- LT CALF (POST TRAUMA ON 05/10/17) -Time 13:06 13:56 13:49 -Correct Patient Yes Yes Yes -Correct Side, Site, Position Yes Yes Yes -Correct Procedure Yes Yes Yes -Procedure Performed Yes Yes Yes -Type of Procedure Debridement Debridement Debridement -Clinical Debridement Subcutaneous Subcutaneous Subcutaneous -Post Debridement Size (cm) - Length 0.4 0.3 0 -Post Debridement Size (cm) - Width 1.4 0.9 0 -Post Debridement Size (cm) - Depth 0.2 0.1 0 -Total Square Cm 0.56 0.27 0 -Wound/Ulcer Outcome Not Healed Not Healed Not Healed -Ulcer Cleansing Rinsed/ Rinsed/ Rinsed/ Irrigated with Irrigated with Irrigated with Saline Saline Saline -Foul Odor after Cleansing No No No -Bioengineered Tissue No No -Bleeding Controlled with Pressure Pressure Pressure -Treatment Response Procedure Procedure Procedure Tolerated Well Tolerated Well Tolerated Well Pain Scale: 0-10 Numeric Is Patient Pain Free? Yes Yes No No debridement was completed today Assessment/Plan Assessment: Nonhealing ulcer left posterior calf status post traumatic injury which occurred at work healed and epithelialized, no signs of infection at this time Plan: The patient's wound has completely healed, discussed wound protection and also discussed prevention of new wounds. Continue compression stockings for edema management. Continue increased protein intake/supplements. Follow up as needed. This note was generated with [employer] software. It may contain incorrect words, spelling, and punctuation that were not noted in checking the note before signing. Code Visit Office Visits / Consults: [id number] OV L3 Est
--- NOTE | 2017-08-16 11:45 | PN.PCM_ITS ---
(1) Decreased pedal pulses Status: Acute Code(s): R09.89 - Other specified symptoms and signs involving the circulatory and respiratory systems (2) Edema, lower extremity Status: Acute Code(s): R60.0 - Localized edema (3) Nonhealing ulcer of left lower extremity with fat layer exposed Status: Acute Code(s): L97.922 - Non-pressure chronic ulcer of unspecified part of left lower leg with fat layer exposed (4) Tobacco abuse Status: Acute Code(s): Z72.0 - Tobacco use Type of Wound Date of Service: 08/16/17 Chief Complaint: Wound and infection left lower posterior calf, s/p work injury History of Wound: This is a 51-year-old white female who presents to the wound healing center today for a follow-up of a wound/ulcer on her left posterior calf. This began on 05/10/2017 when she was at work and cut her leg on an unknown object when she was moving a table. She was seen at [place] emergency department and her laceration was sutured. At that time her tetanus was up-to-date. The patient has been following up with corporate care who had referred her to the wound center because of nonhealing status status post suture removal and surrounding cellulitis. The patient was previously treated with Keflex and is now currently on doxycycline. A wound culture was done which demonstrated rare organisms. The patient denies any purulent drainage, foul-smelling discharge, or pain at the site. Her wound care has included keeping the wound covered while at work with gauze. Unfortunately, the patient does smoke as well and has a [id number] smoking history. The patient otherwise denies any fever, chills, nausea, vomiting, shortness of breath, chest pain or pressure, palpitations, orthopnea, lower extremity edema, syncope or presyncopal episodes. Progress of Wound: Healed and epithelialized, no signs of infection at this time. The patient otherwise denies any fever, chills, nausea, vomiting, shortness of breath, chest pain or pressure, palpitations, orthopnea, lower extremity edema, syncope or presyncopal episodes. - Physical Exam Vital Signs Temp Pulse Resp BP 98.4 F 87 16 124/73 H 08/11/17 13:09 08/11/17 13:09 08/11/17 13:09 08/11/17 13:09 General: Alert, Oriented x3, Cooperative, No apparent distress HEENT: Atraumatic Lungs: Clear to auscultation Cardiovascular: Regular rate Extremities: Capillary Refill Less than 3 Seconds, Edema - Generalized lower extremity edema Skin: Ulcer/ Wound - Ulcer of left posterior lower extremity has completely healed and is well epithelialized, no signs of infection at this time. Neurological: Neuro grossly intact Psych/Mental Status: Normal Affect, Alert and oriented to time, place, person, mood and affect Debridement Note Post-Debridement Measurements/Treatment WC - Nurse 2 - General Ulcer CM Notes Start: 07/21/17 12:37 Freq: Status: Active Protocol: Activity Type Activity Date Activity User E-Sign Co-Sign Detail Recorded Client Recorded Date Recorded By Document 07/21/17 13:05 DV [id number] 07/21/17 13:07 DV Document 08/04/17 13:56 DV [id number] 08/04/17 13:57 DV Document 08/11/17 13:49 DV [id number] 08/11/17 13:52 DV 07/21/17 08/04/17 08/11/17 13:05 13:56 13:49 Wound Center Nurse 2 #1- LT CALF (POST TRAUMA ON 05/10/17) -Time 13:06 13:56 13:49 -Correct Patient Yes Yes Yes -Correct Side, Site, Position Yes Yes Yes -Correct Procedure Yes Yes Yes -Procedure Performed Yes Yes Yes -Type of Procedure Debridement Debridement Debridement -Clinical Debridement Subcutaneous Subcutaneous Subcutaneous -Post Debridement Size (cm) - Length 0.4 0.3 0 -Post Debridement Size (cm) - Width 1.4 0.9 0 -Post Debridement Size (cm) - Depth 0.2 0.1 0 -Total Square Cm 0.56 0.27 0 -Wound/Ulcer Outcome Not Healed Not Healed Not Healed -Ulcer Cleansing Rinsed/ Rinsed/ Rinsed/ Irrigated with Irrigated with Irrigated with Saline Saline Saline -Foul Odor after Cleansing No No No -Bioengineered Tissue No No -Bleeding Controlled with Pressure Pressure Pressure -Treatment Response Procedure Procedure Procedure Tolerated Well Tolerated Well Tolerated Well Pain Scale: 0-10 Numeric Is Patient Pain Free? Yes Yes No No debridement was completed today Assessment/Plan Assessment: Nonhealing ulcer left posterior calf status post traumatic injury which occurred at work healed and epithelialized, no signs of infection at this time Plan: The patient's wound has completely healed, discussed wound protection and also discussed prevention of new wounds. Continue compression stockings for edema management. Continue increased protein intake/supplements. Follow up as needed. This note was generated with [employer] software. It may contain incorrect words, spelling, and punctuation that were not noted in checking the note before signing. Code Visit Office Visits / Consults: [id number] OV L3 Est
== END 2017-08-15 23:59 ==
LOC: WC 13:00
PROVIDERS: Family Provider Family Medicine; Visit Provider Nurse Practitioner Family
DX: S81.812A Laceration without foreign body, left lower leg, initial encounter (principal); R09.89 Other specified symptoms and signs involving the circulatory and respiratory systems; Z72.0 Tobacco use; W45.8XXA Other foreign body or object entering through skin, initial encounter; W22.8XXA Striking against or struck by other objects, initial encounter; Y93.89 Activity, other specified; Y92.89 Other specified places as the place of occurrence of the external cause; Y99.0 Civilian activity done for income or pay
CPT/HCPCS: 11042; 99212; G0463